=== PATIENT | male | born 1935 | race Caucasian/White ===

== ENCOUNTER 2017-06-16 07:24 | Emergency (ER) | payer OTHER ==
[~2017-06-16] VITALS: Ht 172.7 cm; Wt 74.8 kg
[~2017-06-16 07:24] MED LIST: ACET325 PO; ALBU3IS INH; ALBU90OI INH; ALBUIS INH; AMLO5 PO; BREO ELLIPTA 11 EACH IH; BUDE.5; BUDE6HFA INH; CODGUAEL PO; CYCL10 PO; Cipro500 MG PO; HYDACE5 PO; IBUP800 PO; LEVO750 PO; OMEP20ER PO; PRED10 PO; PRED20 PO; PRED5 PO; Prednisone20 MG PO; ROFL500T; RXHYDACE PO; TAMS.4ER; Ventolin Soln3 ML INH
[2017-06-16 08:14] LABS: BASOPHILS ABSOLUTE AUTO 0.02 K/mm3 (0.00-0.23); BASOPHILS PERCENT AUTO 0 % (0-2); EOSINOPHILS ABSOLUTE AUTO 0.67 K/mm3 (0.00-0.68); EOSINOPHILS PERCENT AUTO 7 % (0-6); Hematocrit 43.8 % (37.0-53.0); Hemoglobin 14.9 g/dL (13.5-17.5); IMMATURE GRAN ABSOLUTE AUTO 0.03 K/mm3 (0.00-0.10); IMMATURE GRAN PERCENT AUTO 0 % (0-1); LYMPHOCYTES ABSOLUTE AUTO 1.41 K/mm3 (0.84-5.20); LYMPHOCYTES PERCENT AUTO 16 % (21-46); MONOCYTES ABSOLUTE AUTO 0.54 K/mm3 (0.16-1.47); MONOCYTES PERCENT AUTO 6 % (4-13); Mean Corpuscular HGB 32.1 pg (26.0-34.0); Mean Corpuscular Volume 94 fL (80-100); Mean Platelet Volume 9.3 fL (9.1-12.4); NEUTROPHILS ABSOLUTE AUTO 6.33 K/mm3 (1.96-9.15); NEUTROPHILS PERCENT AUTO 70 % (41-73); Platelet Count 193 K/mm3 (150-400); RDW Coefficient Variation 13.8 % (11.7-14.2); RDW Standard Deviation 47.3 fL (35.1-46.3); Red Blood Cell Count 4.64 M/mm3 (4.30-5.90)
[2017-06-16 08:35] LABS: Alanine Aminotransfer (ALT/SGP 25 U/L (12-78); Albumin, Blood 3.8 g/dL (3.4-5.0); Albumin/Globulin Ratio 1.2 (0.8-1.8); Alk Phos 161 U/L (50-136); Anion Gap 5 mmol/L (6-16); Aspartate Aminotrans (AST/SGOT 20 U/L (12-37); Bilirubin, Total 0.6 mg/dL (0.1-1.0); Blood Urea Nitrogen 18 mg/dL (8-24); CO2, Blood 31 mmol/L (21-32); Calcium, Blood 8.5 mg/dL (8.5-10.1); Chloride, Blood 106 mmol/L (98-108); Creatinine, Blood 0.82 mg/dL (0.60-1.20); Globulin, Blood 3.1 g/dL (2.2-4.0); Glomerular Filtration Rate >60 (60-); Glucose, Blood 115 mg/dL (70-99); Potassium, Blood 3.5 mmol/L (3.5-5.5); Sodium, Blood 142 mmol/L (136-145); Total Protein, Blood 6.9 g/dL (6.4-8.2); Troponin I <0.015 ng/mL (0.000-0.040)
[2017-06-16] MEDS ORDERED: Prednisone20 MG PO (09:49)
[2017-06-16] MEDS ORDERED: Zithromax250 MG PO (09:49)
== END 2017-06-16 10:34 | disposition home or self-care (01) ==
LOC: ER 07:24
PROVIDERS: Emergency Medicine
DX: J44.1 Chronic obstructive pulmonary disease with (acute) exacerbation (principal); Z87.891 Personal history of nicotine dependence
CPT/HCPCS: 36415; 71046; 80053; 84484; 85025; 93005; 93010; 94640; 94644; 99284

== ENCOUNTER 2017-09-02 14:04 | Inpatient (IN) | payer OTHER ==
[~2017-09-02] VITALS: Ht 175.3 cm; Wt 70.4 kg
[~2017-09-02 14:04] MED LIST changes: +Zithromax250 MG PO
[2017-09-02 14:44] LABS: BASOPHILS ABSOLUTE AUTO 0.03 K/mm3 (0.00-0.23); BASOPHILS PERCENT AUTO 0 % (0-2); EOSINOPHILS ABSOLUTE AUTO 0.68 K/mm3 (0.00-0.68); EOSINOPHILS PERCENT AUTO 7 % (0-6); Hematocrit 43.7 % (37.0-53.0); Hemoglobin 14.6 g/dL (13.5-17.5); IMMATURE GRAN ABSOLUTE AUTO 0.03 K/mm3 (0.00-0.10); IMMATURE GRAN PERCENT AUTO 0 % (0-1); LYMPHOCYTES PERCENT AUTO 16 % (21-46); MONOCYTES ABSOLUTE AUTO 0.59 K/mm3 (0.16-1.47); MONOCYTES PERCENT AUTO 6 % (4-13); Mean Corpuscular HGB 32.1 pg (26.0-34.0); Mean Corpuscular HGB Conc 33.4 g/dL (31.5-36.5); Mean Corpuscular Volume 96 fL (80-100); NEUTROPHILS ABSOLUTE AUTO 6.77 K/mm3 (1.96-9.15); NEUTROPHILS PERCENT AUTO 71 % (41-73); Platelet Count 208 K/mm3 (150-400); RDW Coefficient Variation 14.1 % (11.7-14.2); RDW Standard Deviation 50.1 fL (35.1-46.3); Red Blood Cell Count 4.55 M/mm3 (4.30-5.90)
[2017-09-02 16:20] LABS: Alanine Aminotransfer (ALT/SGP 31 U/L (12-78); Albumin, Blood 3.8 g/dL (3.4-5.0); Albumin/Globulin Ratio 1.1 (0.8-1.8); Alk Phos 134 U/L (50-136); Anion Gap 8 mmol/L (6-16); Aspartate Aminotrans (AST/SGOT 26 U/L (12-37); Bilirubin, Total 0.6 mg/dL (0.1-1.0); Blood Urea Nitrogen 14 mg/dL (8-24); Bun/Creatinine Ratio 15.9 (12.0-20.0); CO2, Blood 28 mmol/L (21-32); Calcium, Blood 8.5 mg/dL (8.5-10.1); Chloride, Blood 105 mmol/L (98-108); Creatinine, Blood 0.88 mg/dL (0.60-1.20); Globulin, Blood 3.4 g/dL (2.2-4.0); Glomerular Filtration Rate >60 (60-); Glucose, Blood 91 mg/dL (70-99); Potassium, Blood 3.7 mmol/L (3.5-5.5); Sodium, Blood 141 mmol/L (136-145); Total Protein, Blood 7.2 g/dL (6.4-8.2); Troponin I 0.052 ng/mL (0.000-0.040)
[2017-09-06] MEDS ORDERED: AZIT250 PO (11:55)
[2017-09-06] MEDS ORDERED: ALBU2.5V5 NEB (11:57)
[2017-09-06] MEDS ORDERED: DOCU100 PO (11:58)
[2017-09-06] MEDS ORDERED: DULERA 100 MCG/13 GM INH (11:59)
[2017-09-06] MEDS ORDERED: OMEPRAZOLE MAGN20 MG PO (12:00)
[2017-09-06] MEDS ORDERED: PRED10 PO (12:03)
== END 2017-09-07 11:48 | disposition home or self-care (01) | DRG 189 ==
LOC: DELPENDDIS → ER 14:04 → MEDS 16:51 → ENPENDDIS 09-06 10:00 → MEDS 09-07 11:48
PROVIDERS: Emergency Medicine
DX: J96.01 Acute respiratory failure with hypoxia (principal); I24.8 Other forms of acute ischemic heart disease; J44.1 Chronic obstructive pulmonary disease with (acute) exacerbation; N40.0 Benign prostatic hyperplasia without lower urinary tract symptoms; J40 Bronchitis, not specified as acute or chronic; K21.9 Gastro-esophageal reflux disease without esophagitis; Z87.891 Personal history of nicotine dependence; Z88.2 Allergy status to sulfonamides
CPT/HCPCS: 36415; 71046; 74018; 80053; 84484; 85025; 93005; 93010; 94640; 94644; 94760; 94761; 96365; 96375; 99285; J0696; J2405; J2920; J2930; J7030; Q0163

== ENCOUNTER 2017-09-28 06:45 | Emergency (ER) | payer OTHER ==
[~2017-09-28] VITALS: Ht 175.3 cm; Wt 72.6 kg
[~2017-09-28 06:45] MED LIST changes: +ALBU2.5V5 NEB; +AZIT250 PO; +DOCU100 PO; +DULERA 100 MCG/13 GM INH; +OMEPRAZOLE MAGN20 MG PO
[2017-09-28 09:09] LABS: BASOPHILS ABSOLUTE AUTO 0.04 K/mm3 (0.00-0.23); BASOPHILS PERCENT AUTO 0 % (0-2); EOSINOPHILS ABSOLUTE AUTO 0.56 K/mm3 (0.00-0.68); EOSINOPHILS PERCENT AUTO 5 % (0-6); Hemoglobin 14.5 g/dL (13.5-17.5); IMMATURE GRAN ABSOLUTE AUTO 0.15 K/mm3 (0.00-0.10); IMMATURE GRAN PERCENT AUTO 1 % (0-1); LYMPHOCYTES ABSOLUTE AUTO 0.98 K/mm3 (0.84-5.20); LYMPHOCYTES PERCENT AUTO 8 % (21-46); MONOCYTES ABSOLUTE AUTO 0.41 K/mm3 (0.16-1.47); MONOCYTES PERCENT AUTO 4 % (4-13); Mean Corpuscular HGB 32.7 pg (26.0-34.0); Mean Corpuscular HGB Conc 33.7 g/dL (31.5-36.5); Mean Corpuscular Volume 97 fL (80-100); Mean Platelet Volume 9.3 fL (9.1-12.4); NEUTROPHILS ABSOLUTE AUTO 9.68 K/mm3 (1.96-9.15); NEUTROPHILS PERCENT AUTO 82 % (41-73); Platelet Count 181 K/mm3 (150-400); RDW Coefficient Variation 13.1 % (11.7-14.2); RDW Standard Deviation 46.8 fL (35.1-46.3); Red Blood Cell Count 4.43 M/mm3 (4.30-5.90); White Blood Cell Count 11.82 K/mm3 (4.00-11.30)
[2017-09-28 09:36] LABS: Alanine Aminotransfer (ALT/SGP 40 U/L (12-78); Albumin, Blood 3.5 g/dL (3.4-5.0); Alk Phos 136 U/L (50-136); Anion Gap 7 mmol/L (6-16); Aspartate Aminotrans (AST/SGOT 25 U/L (12-37); Bilirubin, Total 0.4 mg/dL (0.1-1.0); Blood Urea Nitrogen 9 mg/dL (8-24); Bun/Creatinine Ratio 13.9 (12.0-20.0); CO2, Blood 29 mmol/L (21-32); Calcium, Blood 8.4 mg/dL (8.5-10.1); Chloride, Blood 106 mmol/L (98-108); Creatinine, Blood 0.65 mg/dL (0.60-1.20); Globulin, Blood 3.6 g/dL (2.2-4.0); Glomerular Filtration Rate >60 (60-); Glucose, Blood 132 mg/dL (70-99); Potassium, Blood 3.9 mmol/L (3.5-5.5); Sodium, Blood 142 mmol/L (136-145); Total Protein, Blood 7.1 g/dL (6.4-8.2)
[2017-09-28 09:37] LABS: Troponin I 0.015 ng/mL (0.000-0.040)
[2017-09-28 09:50] LABS: PCO2 Arterial 43.8 mmHg (35-45); PO2 Arterial 97.5 mmHg (80-100)
[2017-09-28] MEDS ORDERED: Prednisone20 MG PO (11:03)
== END 2017-09-28 11:25 | disposition home or self-care (01) ==
LOC: ER 06:45
PROVIDERS: Emergency Medicine
DX: J44.9 Chronic obstructive pulmonary disease, unspecified (principal); R09.02 Hypoxemia; Z91.011 Allergy to milk products; Z88.2 Allergy status to sulfonamides; Z79.899 Other long term (current) drug therapy; Z87.891 Personal history of nicotine dependence
CPT/HCPCS: 36415; 36600; 71046; 80053; 82803; 83880; 84484; 85025; 93005; 93010; 94640; 96361; 96374; 99284; J2930; J7030

== ENCOUNTER 2017-11-12 20:09 | Inpatient (IN) | payer OTHER ==
[~2017-11-12] VITALS: Ht 175.3 cm; Wt 81.0 kg
[2017-11-12 20:42] LABS: BASOPHILS ABSOLUTE AUTO 0.05 K/mm3 (0.00-0.23); BASOPHILS PERCENT AUTO 1 % (0-2); EOSINOPHILS ABSOLUTE AUTO 0.09 K/mm3 (0.00-0.68); EOSINOPHILS PERCENT AUTO 1 % (0-6); Hematocrit 39.8 % (37.0-53.0); Hemoglobin 13.8 g/dL (13.5-17.5); IMMATURE GRAN ABSOLUTE AUTO 0.33 K/mm3 (0.00-0.10); IMMATURE GRAN PERCENT AUTO 4 % (0-1); LYMPHOCYTES PERCENT AUTO 20 % (21-46); MONOCYTES ABSOLUTE AUTO 0.67 K/mm3 (0.16-1.47); MONOCYTES PERCENT AUTO 7 % (4-13); Mean Corpuscular HGB 32.9 pg (26.0-34.0); Mean Corpuscular HGB Conc 34.7 g/dL (31.5-36.5); Mean Corpuscular Volume 95 fL (80-100); Mean Platelet Volume 8.9 fL (9.1-12.4); NEUTROPHILS ABSOLUTE AUTO 6.49 K/mm3 (1.96-9.15); NEUTROPHILS PERCENT AUTO 68 % (41-73); NRBC ABSOLUTE 0.02 K/mm3 (0.00-0.02); NRBC Auto 0.2 /100 WBC (0.0-0.2); Platelet Count 201 K/mm3 (150-400); RDW Coefficient Variation 13.9 % (11.7-14.2); RDW Standard Deviation 47.4 fL (35.1-46.3); White Blood Cell Count 9.53 K/mm3 (4.00-11.30)
[2017-11-12 21:00] LABS: Alanine Aminotransfer (ALT/SGP 37 U/L (12-78); Albumin, Blood 3.7 g/dL (3.4-5.0); Albumin/Globulin Ratio 1.2 (0.8-1.8); Alk Phos 105 U/L (50-136); Anion Gap 9 mmol/L (6-16); Aspartate Aminotrans (AST/SGOT 22 U/L (12-37); Bilirubin, Total 0.5 mg/dL (0.1-1.0); Blood Urea Nitrogen 13 mg/dL (8-24); Bun/Creatinine Ratio 17.3 (12.0-20.0); CO2, Blood 24 mmol/L (21-32); Calcium, Blood 8.9 mg/dL (8.5-10.1); Chloride, Blood 108 mmol/L (98-108); Creatinine, Blood 0.75 mg/dL (0.60-1.20); Glomerular Filtration Rate >60 (60-); Glucose, Blood 95 mg/dL (70-99); Potassium, Blood 4.1 mmol/L (3.5-5.5); Sodium, Blood 141 mmol/L (136-145); Total Protein, Blood 6.7 g/dL (6.4-8.2)
[2017-11-12 23:45] LABS: CHOL/HDL RATIO 3.5; Cholesterol 233 mg/dL (50-200); HDL Cholesterol 66 mg/dL (>39); LDL/HDL RATIO 1.9; Low Density Lipoprotein Chol 128 mg/dL (0-110); Triglycerides 193 mg/dL (30-160); Very Low Density Lipoprot Chol 38 mg/dL (6-32)
[2017-11-13] MEDS ORDERED: STIOLTO RESPIMAT4 GM IH (00:45)
[2017-11-14] MEDS ORDERED: PRED5 PO (14:54)
[2017-11-14] MEDS ORDERED: AMLO5 PO (14:55)
[2017-11-14] MEDS ORDERED: ASPI81CH PO (14:56)
[2017-11-14] MEDS ORDERED: ATOR40TA PO (14:57)
== END 2017-11-14 15:56 | disposition home or self-care (01) | DRG 66 ==
LOC: ER 20:09 → SURS 20:10 → MEDS 20:10 → SURS 20:10 → MEDS 11-13 00:04 → ENPENDDIS 11-14 13:47 → MEDS 11-14 15:56
PROVIDERS: Emergency Medicine
DX: I63.9 Cerebral infarction, unspecified (principal); Z66 Do not resuscitate; J44.9 Chronic obstructive pulmonary disease, unspecified; N40.0 Benign prostatic hyperplasia without lower urinary tract symptoms; I10 Essential (primary) hypertension; Z90.79 Acquired absence of other genital organ(s); Z85.820 Personal history of malignant melanoma of skin; Z87.891 Personal history of nicotine dependence; I16.0 Hypertensive urgency; Z79.01 Long term (current) use of anticoagulants; F41.9 Anxiety disorder, unspecified; G83.11 Monoplegia of lower limb affecting right dominant side; E87.5 Hyperkalemia; G47.33 Obstructive sleep apnea (adult) (pediatric); K46.9 Unspecified abdominal hernia without obstruction or gangrene; Z98.49 Cataract extraction status, unspecified eye
CPT/HCPCS: 36415; 70450; 70551; 72100; 80053; 80061; 82947; 85025; 93005; 93010; 93306; 93880; 94640; 94760; 97162; 97166; 97530; 99285; G0378; G8978; G8979; G8980; G8987; G8988; G8989; J1650

== ENCOUNTER 2020-02-08 19:04 | Emergency (ER) | payer OTHER ==
[~2020-02-08] VITALS: Ht 172.7 cm; Wt 72.1 kg
[~2020-02-08 19:04] MED LIST changes: +ASPI81CH PO; +ATOR40TA PO; +CHOL10002; +Guaifenesin-Co118 ML PO; +STIOLTO RESPIMAT4 GM IH
[2020-02-08] MEDS ORDERED: Colace100 MG PO (22:32)
[2020-02-08] MEDS ORDERED: Magnesium Citr296 ML PO (22:32)
== END 2020-02-08 22:52 | disposition home or self-care (01) ==
LOC: ER 19:04
DX: K59.00 Constipation, unspecified (principal); Z91.011 Allergy to milk products; Z88.2 Allergy status to sulfonamides; Z79.899 Other long term (current) drug therapy; J44.9 Chronic obstructive pulmonary disease, unspecified; Z87.891 Personal history of nicotine dependence
CPT/HCPCS: 74018; 99283-25

== ENCOUNTER 2020-04-18 18:37 | Inpatient (IN) | payer OTHER ==
[~2020-04-18] VITALS: Ht 175.3 cm; Wt 73.2 kg
[~2020-04-18 18:37] MED LIST changes: +Colace100 MG PO; +Magnesium Citr296 ML PO
[2020-04-18] MEDS ORDERED: ALBU3IS INH (18:59)
[2020-04-18] MEDS ORDERED: AZIT250 PO (18:59)
[2020-04-18] MEDS ORDERED: ATOR20 PO (19:00)
[2020-04-18] MEDS ORDERED: MOME220I INH (19:00)
[2020-04-18] MEDS ORDERED: STIOLTO RESPIMAT4 G1 INH (19:00)
[2020-04-18] MEDS ORDERED: Aspir 8181 MG PO (19:00)
[2020-04-18] MEDS ORDERED: N-ACETYL-L-CYS600 MG PO (19:01)
[2020-04-18] MEDS ORDERED: PRED5 (19:01)
[2020-04-18 19:11] LABS: BASOPHILS ABSOLUTE AUTO 0.01 K/mm3 (0.00-0.23); BASOPHILS PERCENT AUTO 0 % (0-2); EOSINOPHILS ABSOLUTE AUTO 0.01 K/mm3 (0.00-0.68); EOSINOPHILS PERCENT AUTO 0 % (0-6); Hematocrit 38.5 % (37.0-53.0); Hemoglobin 12.1 g/dL (13.5-17.5); IMMATURE GRAN ABSOLUTE AUTO 0.02 K/mm3 (0.00-0.10); IMMATURE GRAN PERCENT AUTO 0 % (0-1); LYMPHOCYTES ABSOLUTE AUTO 0.93 K/mm3 (0.84-5.20); LYMPHOCYTES PERCENT AUTO 11 % (21-46); MONOCYTES ABSOLUTE AUTO 0.39 K/mm3 (0.16-1.47); MONOCYTES PERCENT AUTO 5 % (4-13); Mean Corpuscular HGB 27.9 pg (26.0-34.0); Mean Corpuscular HGB Conc 31.4 g/dL (31.5-36.5); Mean Corpuscular Volume 89 fL (80-100); Mean Platelet Volume 9.6 fL (9.1-12.4); NEUTROPHILS ABSOLUTE AUTO 6.99 K/mm3 (1.96-9.15); NEUTROPHILS PERCENT AUTO 84 % (41-73); Platelet Count 195 K/mm3 (150-400); RDW Coefficient Variation 13.3 % (11.7-14.2); RDW Standard Deviation 43.2 fL (35.1-46.3); Red Blood Cell Count 4.33 M/mm3 (4.30-5.90); White Blood Cell Count 8.35 K/mm3 (4.00-11.30)
[2020-04-18 19:31] LABS: Alanine Aminotransfer (ALT/SGP 22 U/L (12-78); Albumin, Blood 3.6 g/dL (3.4-5.0); Albumin/Globulin Ratio 1.1 (0.8-1.8); Alk Phos 197 U/L (50-136); Anion Gap 6 mmol/L (6-16); Aspartate Aminotrans (AST/SGOT 19 U/L (12-37); Bilirubin, Total 0.5 mg/dL (0.1-1.0); Blood Urea Nitrogen 21 mg/dL (8-24); Bun/Creatinine Ratio 22.8 (12.0-20.0); CO2, Blood 28 mmol/L (21-32); Calcium, Blood 8.6 mg/dL (8.5-10.1); Chloride, Blood 111 mmol/L (98-108); Creatinine, Blood 0.92 mg/dL (0.60-1.20); Globulin, Blood 3.3 g/dL (2.2-4.0); Glomerular Filtration Rate >60 (60-); Glucose, Blood 170 mg/dL (70-99); Potassium, Blood 4.2 mmol/L (3.5-5.5); Sodium, Blood 145 mmol/L (136-145); Total Protein, Blood 6.9 g/dL (6.4-8.2); Troponin I <0.015 ng/mL (0.000-0.040)
[2020-04-18 19:40] LABS: International Normalized Ratio 1.03
[2020-04-20 06:38] LABS: Anion Gap 6 mmol/L (6-16); Blood Urea Nitrogen 18 mg/dL (8-24); Bun/Creatinine Ratio 23.9 (12.0-20.0); CO2, Blood 26 mmol/L (21-32); Calcium, Blood 8.8 mg/dL (8.5-10.1); Chloride, Blood 112 mmol/L (98-108); Creatinine, Blood 0.75 mg/dL (0.60-1.20); Glomerular Filtration Rate >60 (60-); Glucose, Blood 107 mg/dL (70-99); Potassium, Blood 3.9 mmol/L (3.5-5.5); Sodium, Blood 144 mmol/L (136-145)
[2020-04-21] MEDS ORDERED: MIRALAX17 GM PO (10:42)
[2020-04-21] MEDS ORDERED: FURO20 PO (10:43)
[2020-04-21] MEDS ORDERED: Klor-Con 1010 MEQ PO (10:45)
[2020-04-22 16:42] LABS: Source, Urine Catheter
[2020-04-22 16:47] LABS: Bilirubin, Urine Neg (Neg); Blood, Urine 2+ (Neg); Glucose Qualitative, Urine Neg (Neg); Ketones, Urine Neg (Neg); Leukocyte Esterase, Urine 1+ (Neg); Nitrite, Urine Neg (Neg); Protein, Urine 1+ (Neg); Urobilinogen, Urine NORM (Normal)
[2020-04-22 17:15] LABS: Appearance, Urine Hazy (Clear); Color, Urine Yellow (P-Yellow)
[2020-04-22 17:17] LABS: Bacteria Few /hpf; Squamous Epithelial Cells Rare /hpf (Few); Yeast/Fungi Urine Mod /hpf
[2020-04-23] MEDS ORDERED: TAMS.4ER PO (11:14)
[2020-04-23] MEDS ORDERED: Prinivil10 MG PO (11:14)
[2020-04-23] MEDS ORDERED: ASPI81CH PO (11:14)
[2020-04-23] MEDS ORDERED: AMLO5 PO (11:14)
== END 2020-04-23 15:00 | DRG 66 ==
LOC: ER 18:37 → MEDS 18:38
PROVIDERS: Emergency Medicine; Internal Medicine; ADMIT Hospitalist
DX: I63.81 Other cerebral infarction due to occlusion or stenosis of small artery (principal); R29.810 Facial weakness; Z87.891 Personal history of nicotine dependence; R47.1 Dysarthria and anarthria; E78.5 Hyperlipidemia, unspecified; Z90.79 Acquired absence of other genital organ(s); I10 Essential (primary) hypertension; W18.30XA Fall on same level, unspecified, initial encounter; Y92.231 Patient bathroom in hospital as the place of occurrence of the external cause; S01.01XA Laceration without foreign body of scalp, initial encounter; R33.9 Retention of urine, unspecified
CPT/HCPCS: 36415; 70450; 70496; 70498; 70551; 80048; 80053; 81001; 84484; 85025; 85610; 85730; 87086; 92526; 92610; 93005; 93010; 94640; 94667; 94668; 94760; 97110; 97116; 97129; 97162; 97166; 97530; 97535; 99285-25; A9270-GY; G0378; J7030; Q9967; U0004

== ENCOUNTER 2020-06-27 14:34 | Emergency (ER) | payer OTHER ==
[~2020-06-27] VITALS: Ht 175.3 cm; Wt 77.1 kg
[~2020-06-27 14:34] MED LIST changes: +ATOR20 PO; +Aspir 8181 MG PO; +FURO20 PO; +Klor-Con 1010 MEQ PO; +MIRALAX17 GM PO; +MOME220I INH; +N-ACETYL-L-CYS600 MG PO; +PRED5; +Prinivil10 MG PO; +STIOLTO RESPIMAT4 G1 INH; +TAMS.4ER PO
[2020-06-27 15:44] LABS: BASOPHILS ABSOLUTE AUTO 0.04 K/mm3 (0.00-0.23); BASOPHILS PERCENT AUTO 0 % (0-2); EOSINOPHILS ABSOLUTE AUTO 0.64 K/mm3 (0.00-0.68); EOSINOPHILS PERCENT AUTO 6 % (0-6); Hematocrit 42.6 % (37.0-53.0); Hemoglobin 13.6 g/dL (13.5-17.5); IMMATURE GRAN ABSOLUTE AUTO 0.04 K/mm3 (0.00-0.10); IMMATURE GRAN PERCENT AUTO 0 % (0-1); LYMPHOCYTES ABSOLUTE AUTO 1.43 K/mm3 (0.84-5.20); LYMPHOCYTES PERCENT AUTO 13 % (21-46); MONOCYTES PERCENT AUTO 4 % (4-13); Mean Corpuscular HGB 29.4 pg (26.0-34.0); Mean Corpuscular HGB Conc 31.9 g/dL (31.5-36.5); Mean Corpuscular Volume 92 fL (80-100); Mean Platelet Volume 9.4 fL (9.1-12.4); NEUTROPHILS ABSOLUTE AUTO 8.49 K/mm3 (1.96-9.15); NEUTROPHILS PERCENT AUTO 77 % (41-73); Platelet Count 200 K/mm3 (150-400); Red Blood Cell Count 4.62 M/mm3 (4.30-5.90); White Blood Cell Count 11.04 K/mm3 (4.00-11.30)
[2020-06-27 16:01] LABS: Alanine Aminotransfer (ALT/SGP 24 U/L (12-78); Albumin, Blood 3.7 g/dL (3.4-5.0); Albumin/Globulin Ratio 1.1 (0.8-1.8); Alk Phos 234 U/L (50-136); Anion Gap 4 mmol/L (6-16); Aspartate Aminotrans (AST/SGOT 19 U/L (12-37); Bilirubin, Total 0.6 mg/dL (0.1-1.0); Blood Urea Nitrogen 13 mg/dL (8-24); Bun/Creatinine Ratio 16.3 (12.0-20.0); CO2, Blood 29 mmol/L (21-32); Calcium, Blood 8.9 mg/dL (8.5-10.1); Chloride, Blood 108 mmol/L (98-108); Globulin, Blood 3.5 g/dL (2.2-4.0); Glomerular Filtration Rate >60 (60-); Glucose, Blood 115 mg/dL (70-99); Potassium, Blood 3.9 mmol/L (3.5-5.5); Sodium, Blood 141 mmol/L (136-145); Total Protein, Blood 7.2 g/dL (6.4-8.2); Troponin I <0.015 ng/mL (0.000-0.040)
== END 2020-06-27 19:48 | disposition home or self-care (01) ==
LOC: ER 14:34
PROVIDERS: Physician Assistant
DX: J44.1 Chronic obstructive pulmonary disease with (acute) exacerbation (principal); Z79.52 Long term (current) use of systemic steroids; Z79.899 Other long term (current) drug therapy; Z79.82 Long term (current) use of aspirin; Z91.011 Allergy to milk products; Z88.2 Allergy status to sulfonamides; Z87.891 Personal history of nicotine dependence
CPT/HCPCS: 36415; 71046; 80053; 84484; 85025; 93005; 93010; 94640; 99285-25

== ENCOUNTER 2020-11-14 02:26 | Emergency (ER) | payer OTHER ==
[~2020-11-14] VITALS: Ht 175.3 cm; Wt 68.0 kg
[2020-11-14 03:00] LABS: BASOPHILS ABSOLUTE AUTO 0.03 K/mm3 (0.00-0.23); BASOPHILS PERCENT AUTO 0 % (0-2); EOSINOPHILS ABSOLUTE AUTO 0.65 K/mm3 (0.00-0.68); EOSINOPHILS PERCENT AUTO 7 % (0-6); Hematocrit 39.9 % (37.0-53.0); Hemoglobin 12.7 g/dL (13.5-17.5); IMMATURE GRAN ABSOLUTE AUTO 0.04 K/mm3 (0.00-0.10); IMMATURE GRAN PERCENT AUTO 0 % (0-1); LYMPHOCYTES ABSOLUTE AUTO 1.79 K/mm3 (0.84-5.20); LYMPHOCYTES PERCENT AUTO 19 % (21-46); MONOCYTES ABSOLUTE AUTO 0.57 K/mm3 (0.16-1.47); MONOCYTES PERCENT AUTO 6 % (4-13); Mean Corpuscular HGB 28.6 pg (26.0-34.0); Mean Corpuscular HGB Conc 31.8 g/dL (31.5-36.5); Mean Corpuscular Volume 90 fL (80-100); Mean Platelet Volume 9.4 fL (9.1-12.4); NEUTROPHILS ABSOLUTE AUTO 6.13 K/mm3 (1.96-9.15); NEUTROPHILS PERCENT AUTO 67 % (41-73); Platelet Count 201 K/mm3 (150-400); RDW Coefficient Variation 13.5 % (11.7-14.2); RDW Standard Deviation 44.1 fL (35.1-46.3); Red Blood Cell Count 4.44 M/mm3 (4.30-5.90); White Blood Cell Count 9.21 K/mm3 (4.00-11.30)
[2020-11-14 03:20] LABS: Alanine Aminotransfer (ALT/SGP 23 U/L (12-78); Albumin, Blood 3.6 g/dL (3.4-5.0); Albumin/Globulin Ratio 1.1 (0.8-1.8); Alk Phos 215 U/L (50-136); Anion Gap 5 mmol/L (6-16); Aspartate Aminotrans (AST/SGOT 13 U/L (12-37); Bilirubin, Total 0.4 mg/dL (0.1-1.0); Blood Urea Nitrogen 15 mg/dL (8-24); Bun/Creatinine Ratio 16.4 (12.0-20.0); CO2, Blood 27 mmol/L (21-32); Calcium, Blood 8.7 mg/dL (8.5-10.1); Chloride, Blood 108 mmol/L (98-108); Creatinine, Blood 0.91 mg/dL (0.60-1.20); Globulin, Blood 3.4 g/dL (2.2-4.0); Glomerular Filtration Rate >60 (60-); Glucose, Blood 124 mg/dL (70-99); Potassium, Blood 3.9 mmol/L (3.5-5.5); Sodium, Blood 140 mmol/L (136-145); Troponin I <0.015 ng/mL (0.000-0.040)
[2020-11-14] MEDS ORDERED: Prednisone20 MG PO (03:33)
[2020-11-14] MEDS ORDERED: ALBU90OI INH (03:33)
== END 2020-11-14 04:32 | disposition home or self-care (01) ==
LOC: ER 02:26
PROVIDERS: Emergency Medicine
DX: J44.1 Chronic obstructive pulmonary disease with (acute) exacerbation (principal); Z91.011 Allergy to milk products; Z88.2 Allergy status to sulfonamides; Z79.82 Long term (current) use of aspirin; Z79.899 Other long term (current) drug therapy; Z87.891 Personal history of nicotine dependence
CPT/HCPCS: 36415; 71045; 80053; 83605; 83880; 84484; 85025; 93005; 93010; 94644; 96365; 96375; 99285-25; J2930; J3475

== ENCOUNTER 2020-12-09 06:18 | Inpatient (IN) | payer OTHER ==
[~2020-12-09] VITALS: Ht 175.3 cm; Wt 72.7 kg
[2020-12-09 07:17] LABS: BASOPHILS ABSOLUTE AUTO 0.02 K/mm3 (0.00-0.23); BASOPHILS PERCENT AUTO 0 % (0-2); EOSINOPHILS ABSOLUTE AUTO 0.01 K/mm3 (0.00-0.68); EOSINOPHILS PERCENT AUTO 0 % (0-6); Hemoglobin 13.1 g/dL (13.5-17.5); IMMATURE GRAN ABSOLUTE AUTO 0.11 K/mm3 (0.00-0.10); IMMATURE GRAN PERCENT AUTO 1 % (0-1); LYMPHOCYTES ABSOLUTE AUTO 1.31 K/mm3 (0.84-5.20); LYMPHOCYTES PERCENT AUTO 11 % (21-46); MONOCYTES ABSOLUTE AUTO 0.33 K/mm3 (0.16-1.47); MONOCYTES PERCENT AUTO 3 % (4-13); Mean Corpuscular HGB 28.5 pg (26.0-34.0); Mean Corpuscular Volume 89 fL (80-100); NEUTROPHILS ABSOLUTE AUTO 10.14 K/mm3 (1.96-9.15); NEUTROPHILS PERCENT AUTO 85 % (41-73); NRBC ABSOLUTE 0.02 K/mm3 (0.00-0.02); NRBC Auto 0.2 /100 WBC (0.0-0.2); RDW Coefficient Variation 13.5 % (11.7-14.2); RDW Standard Deviation 43.8 fL (35.1-46.3); White Blood Cell Count 11.92 K/mm3 (4.00-11.30)
[2020-12-09 07:19] LABS: Alanine Aminotransfer (ALT/SGP 23 U/L (12-78); Albumin, Blood 3.2 g/dL (3.4-5.0); Alk Phos 142 U/L (50-136); Anion Gap 8 mmol/L (6-16); Aspartate Aminotrans (AST/SGOT 13 U/L (12-37); Bilirubin, Total 0.4 mg/dL (0.1-1.0); Blood Urea Nitrogen 21 mg/dL (8-24); CO2, Blood 27 mmol/L (21-32); Calcium, Blood 8.7 mg/dL (8.5-10.1); Chloride, Blood 110 mmol/L (98-108); Creatinine, Blood 0.78 mg/dL (0.60-1.20); Globulin, Blood 3.1 g/dL (2.2-4.0); Glomerular Filtration Rate >60 (60-); Glucose, Blood 103 mg/dL (70-99); Potassium, Blood 3.7 mmol/L (3.5-5.5); Sodium, Blood 145 mmol/L (136-145); Total Protein, Blood 6.3 g/dL (6.4-8.2)
[2020-12-09 07:23] LABS: Platelet Count 165 K/mm3 (150-400)
--- NOTE | 2020-12-09 14:40 | NUR ---
Patient is resting in bed but easily awakens to the sound of his name. Patient tells me about the events that led to his hospitalization and then explains about the stroke that he had 4 mos ago. Patient talks about his caring and adopted son and how much they mean to him. He shares about his [employer] Religion sam and talks about how he has trouble reading the Bible since the stroke (as well as having difficulties, talking, eating and being mobile). I normalize patient's experience, and provide pastoral counselor at law, companionship and prayer. Patient responds well and shows signs of an elevated mood. I will continue to remain available to patient and family.
[2020-12-09 14:55] LABS: Base Excess Venous -1.9 mmol/L; Bicarbonate Venous 23.4 mmol/L (24.0-30.0); PCO2 Venous 30.9 mmHg (38-42); PO2 Venous 151 mmHg (38-42); pH Blood Venous 7.46 (7.34-7.37)
[2020-12-09] MEDS ORDERED: TAMS.4ER PO (16:19)
[2020-12-09] MEDS ORDERED: NAC600 MG PO (16:41)
--- NOTE | 2020-12-09 17:51 | NUR ---
SHIFT SUMMARY PT A&O X3, SOMETIMES HAS A HARD TIME FINDING THE RIGHT WORDS TO ANSWER QUESTIONS. HX OF RECENT STROKE. UP SBA IN ROOM. INCREASED SOB WITH ACTIVITY. 1L OXYGEN VIA NC. OOB TO CHAIR FOR MEALS WITH ASPIRATION PRECAUTIONS. PT UP TO BATHROOM THIS EVENING UNABLE TO VOID. BLADDER SCAN WITH 540 CC. PT DECLINES TO HAVE RUIZ PLACED AT THAT TIME. "I WANT TO TRY TO GO AGAIN IN AN HOUR" WILL ASSIST PT TO BATHROOM AND CHECK BLADDER SCAN AT THAT TIME. VSS. PLAN: CONTINUE ABX
--- NOTE | 2020-12-09 18:46 | NUR ---
PT UNABLE TO VOID PT UP TO BR TO VOID WITH SBA. VOIDED SCANT AMOUNT. BLADDER SCAN SHOWED 573 CC. PT WANTS TO WAIT "ANOTHER HOUR" TO ATTEMPT TO VOID PRIOR TO RUIZ CATH PLACEMENT. CALL TO DR LARRY- STATED IT WAS OK TO GIVE PT MORE TIME TO VOID. NEW ORDER RECIEVED.
--- NOTE | 2020-12-09 19:45 | NUR ---
MARILUZ ATTEMPTED TO VOID AFTER BLADDER SCAN SHOWED >650 IN THE BLADDER. HE WAS ONLY ABLE TO VOID MAYBE AN ESTIMATE OF 50CC. HE WAS NOT TO FOND OF GETTING A CATHETER BUT HE TOLERATED IT WELL. 16F RUIZ PLACED WITH NO PROBLEMS. DARK YELLOW URINE OBTAINED. ATTACHED TO STAT LOCK. WILL MONITOR T/O NIGHT.
[2020-12-10 05:21] LABS: Hematocrit 29.5 % (37.0-53.0); Hemoglobin 9.7 g/dL (13.5-17.5); Mean Corpuscular HGB Conc 32.9 g/dL (31.5-36.5); Mean Corpuscular Volume 88 fL (80-100); Mean Platelet Volume 9.8 fL (9.1-12.4); Platelet Count 177 K/mm3 (150-400); RDW Coefficient Variation 13.8 % (11.7-14.2); RDW Standard Deviation 44.5 fL (35.1-46.3); Red Blood Cell Count 3.35 M/mm3 (4.30-5.90); White Blood Cell Count 14.62 K/mm3 (4.00-11.30)
[2020-12-10 05:47] LABS: Anion Gap 7 mmol/L (6-16); Blood Urea Nitrogen 17 mg/dL (8-24); Bun/Creatinine Ratio 25.9 (12.0-20.0); CO2, Blood 24 mmol/L (21-32); Calcium, Blood 7.6 mg/dL (8.5-10.1); Chloride, Blood 111 mmol/L (98-108); Creatinine, Blood 0.66 mg/dL (0.60-1.20); Glomerular Filtration Rate >60 (60-); Glucose, Blood 148 mg/dL (70-99); Potassium, Blood 3.7 mmol/L (3.5-5.5); Sodium, Blood 142 mmol/L (136-145)
--- NOTE | 2020-12-10 06:03 | NUR ---
SHIFT SUMMARY: AOX3, SBA TO THE BATHROOM. VS WNL, AFEBRILE. NO PAIN NOTED. LUNG SOUNDS DIMINISHED, COURSE. MOIST NON-PRODUCTIVE COUGH. ON 1 LITER OF O2 SATS MAINTAINED ABOVE 90%, MAY BE ABLE TO BE TAKEN OFF OF IT TODAY. NO EDEMA NOTED. DYSPNEA ON EXERTION, RECOVERY IS QUICK. UNABLE TO VOID. BLADDER SCAN SHOWED >650. PLACED 16F RUIZ, DARK YELLOW URINE. REPORTS BREATHING TREATMENTS HELP. ON NECTER THICK FLUIDS, IS GOOD ABOUT FOLLOWING CHIN TUCK. BLOOD CULTURES POSTIVE FOR GRAM + COCCI IN CLUSTERS. ON UNASYN. LACTIC ACID REPEAT CAME BACK 4.2 LOWER THEN PREVIOUS LEVEL. WBC UP TO 14.62. CALLS APPROPRIATLY. WILL REPORT TO DAYSHIFT. CALL LIGHT IN REACH.
[2020-12-10 07:30] LABS: Source, Urine Catheter
[2020-12-10 07:34] LABS: Appearance, Urine Clear (Clear); Bilirubin, Urine Neg (Neg); Blood, Urine 2+ (Neg); Color, Urine Yellow (P-Yellow); Glucose Qualitative, Urine Neg (Neg); Ketones, Urine Neg (Neg); Leukocyte Esterase, Urine 1+ (Neg); Nitrite, Urine Neg (Neg); Protein, Urine 2+ (Neg); Urobilinogen, Urine NORM (Normal)
[2020-12-10 07:52] LABS: Squamous Epithelial Cells Rare /hpf (Few)
[2020-12-10 07:54] LABS: Bacteria Rare /hpf
--- NOTE | 2020-12-10 14:22 | NUR ---
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 He was very popular and is deeply missed. He was appreciative of visit, smiled easily and reports hope for a return to post-stroke baseline. Prayer and encouragement well received. Weapons System Instrument Mechanic services will remain available.
[2020-12-10] MEDS ORDERED: PRED5 PO (14:59)
[2020-12-10] MEDS ORDERED: FLOVENT HFA12 GM INH (15:01)
--- NOTE | 2020-12-10 17:17 | NUR ---
SHIFT SUMMARY PT AXO, PLEASANT AND COOPERATIVE WITH CARE. RUIZ AND PERIPHERAL IV'S DC'D THIS SHIFT. POWERGLIDE TO BRANDEN IN PLACE AND INFUSING VANCO AND NS PER EMAR AT THIS TIME. PT UP TO CHAIR FOR MOST OF THE DAY AND MEALS WITH SBA. SPOUSE PRESENT IN ROOM FOR PHYSICIAN VISIT, ALL QUESTIONS ANSWERED. PT 94% ON RA. DENIES PAIN, SOB AND NV. SOME NONPRODUCTIVE COUGH THIS SHIFT. BED IN LOW POSITION, CALL LIGHT WITHIN REACH. NO OTHER CHANGES THIS SHIFT.
--- NOTE | 2020-12-11 04:44 | NUR ---
DIETARY DIRECTOR SUMMARY PT AAOX4 AND PLEASANT. CONTINUES ON IV ABX. HAS URINATED 450 ML THIS SHIFT AFTER HAVING RUIZ CATH DC'D EARLIER TODAY. PT DENIES PAIN, SOB, N/V. HAS SLEPT MOST OF THE SHIFT WITH NO COMPLAINTS. VSS, WILL CONTINUE TO MONITOR.
[2020-12-11 05:49] LABS: BASOPHILS ABSOLUTE AUTO 0.02 K/mm3 (0.00-0.23); BASOPHILS PERCENT AUTO 0 % (0-2); EOSINOPHILS PERCENT AUTO 0 % (0-6); Hematocrit 29.2 % (37.0-53.0); Hemoglobin 9.5 g/dL (13.5-17.5); IMMATURE GRAN PERCENT AUTO 2 % (0-1); LYMPHOCYTES ABSOLUTE AUTO 0.81 K/mm3 (0.84-5.20); LYMPHOCYTES PERCENT AUTO 6 % (21-46); MONOCYTES ABSOLUTE AUTO 0.53 K/mm3 (0.16-1.47); MONOCYTES PERCENT AUTO 4 % (4-13); Mean Corpuscular HGB 29.1 pg (26.0-34.0); Mean Corpuscular HGB Conc 32.5 g/dL (31.5-36.5); Mean Corpuscular Volume 89 fL (80-100); Mean Platelet Volume 9.8 fL (9.1-12.4); NEUTROPHILS ABSOLUTE AUTO 11.39 K/mm3 (1.96-9.15); NEUTROPHILS PERCENT AUTO 88 % (41-73); Platelet Count 177 K/mm3 (150-400); RDW Coefficient Variation 13.8 % (11.7-14.2); RDW Standard Deviation 45.5 fL (35.1-46.3); Red Blood Cell Count 3.27 M/mm3 (4.30-5.90); White Blood Cell Count 12.95 K/mm3 (4.00-11.30)
[2020-12-11 06:17] LABS: Anion Gap 5 mmol/L (6-16); Blood Urea Nitrogen 16 mg/dL (8-24); Bun/Creatinine Ratio 23.2 (12.0-20.0); CO2, Blood 25 mmol/L (21-32); Calcium, Blood 7.8 mg/dL (8.5-10.1); Chloride, Blood 111 mmol/L (98-108); Creatinine, Blood 0.69 mg/dL (0.60-1.20); Glomerular Filtration Rate >60 (60-); Glucose, Blood 130 mg/dL (70-99); Potassium, Blood 3.8 mmol/L (3.5-5.5); Sodium, Blood 141 mmol/L (136-145)
--- NOTE | 2020-12-11 17:42 | NUR ---
SHIFT SUMMARY PT A&OX4, ABLE TO MAKE NEEDS KNOWN. PLEASANT AND COOPERATIVE TO CARE. PT INDEPENDENT IN THE ROOM, CALLS APPROPRIATELY FOR ASSISTANCE. NO C/O PAIN THIS SHIFT. DENIES CP OR N&V. PT REPORTED SOB WITH EXERTION, DRY COUGH NOTED. PT ON CONT BIOX, SATS 91-93% IN RA, AT REST. O2 SAT NOTED TO GO DOWN TO 87-88% WHEN PT IS GETTING UP FROM BED OR AFTER WALKING BACK FROM BATHROOM. NOTIFIED DR. GU. NO FURTHER ORDERS NOTED. PT CALM AND COMFORTABLE IN BED AT THIS TIME. DENIES ANY DISCOMFORT. BED AT LOWEST POSITION. CALL LIGHT WITHIN REACH.
--- NOTE | 2020-12-11 17:54 | NUR ---
SHIFT SUMMARY PT A&OX4, ABLE TO MAKE NEEDS KNOWN, PLEASANT AND COOPERATIVE TO CARE. NO C/O PAIN OR ANY DISCOMFORT THIS SHIFT. DENIES CP, SOB, OR N&V. NO ACUTE CHANGES NOTED TO PT THIS SHIFT. TOLERATED MEDICATIONS WELL WHOLE IN APPLESAUCE. PT SBA TO THE BATHROOM W/ FWW. PT ABLE TO VOID W/O ISSUES, USES URINAL, DENIES DYSURIA. BED AT LOWEST POSITION. CALL LIGHT WITHIN REACH.
--- NOTE | 2020-12-12 04:47 | NUR ---
SHIFT SUMMARY PT A/O X4; PLEASANT AND COOPERATIVE WITH CARE. NO ACUTE CHANGES THIS SHIFT. PT IS ABLE TO MAKE NEEDS KNOWN. VOIDS USING A URINAL AND SBA TO THE BA. HAS BEEN RESTING COMFORTABLY FOR THE MAJORITY OF THE SHIFT. VSS. WILL REPORT TO ONCOMING RN.
[2020-12-12 04:59] LABS: BASOPHILS ABSOLUTE AUTO 0.04 K/mm3 (0.00-0.23); BASOPHILS PERCENT AUTO 0 % (0-2); EOSINOPHILS ABSOLUTE AUTO 0.04 K/mm3 (0.00-0.68); EOSINOPHILS PERCENT AUTO 0 % (0-6); Hematocrit 33.1 % (37.0-53.0); Hemoglobin 10.7 g/dL (13.5-17.5); IMMATURE GRAN ABSOLUTE AUTO 0.37 K/mm3 (0.00-0.10); IMMATURE GRAN PERCENT AUTO 4 % (0-1); LYMPHOCYTES ABSOLUTE AUTO 1.17 K/mm3 (0.84-5.20); LYMPHOCYTES PERCENT AUTO 12 % (21-46); MONOCYTES PERCENT AUTO 5 % (4-13); Mean Corpuscular HGB 28.5 pg (26.0-34.0); Mean Corpuscular HGB Conc 32.3 g/dL (31.5-36.5); Mean Corpuscular Volume 88 fL (80-100); Mean Platelet Volume 9.4 fL (9.1-12.4); NEUTROPHILS PERCENT AUTO 79 % (41-73); Platelet Count 195 K/mm3 (150-400); RDW Coefficient Variation 13.8 % (11.7-14.2); RDW Standard Deviation 44.9 fL (35.1-46.3); Red Blood Cell Count 3.75 M/mm3 (4.30-5.90); White Blood Cell Count 9.92 K/mm3 (4.00-11.30)
[2020-12-12 05:17] LABS: Anion Gap 6 mmol/L (6-16); Blood Urea Nitrogen 15 mg/dL (8-24); Bun/Creatinine Ratio 17.8 (12.0-20.0); CO2, Blood 28 mmol/L (21-32); Calcium, Blood 8.1 mg/dL (8.5-10.1); Chloride, Blood 108 mmol/L (98-108); Creatinine, Blood 0.84 mg/dL (0.60-1.20); Glomerular Filtration Rate >60 (60-); Glucose, Blood 87 mg/dL (70-99); Potassium, Blood 3.7 mmol/L (3.5-5.5); Sodium, Blood 142 mmol/L (136-145)
[2020-12-12 14:43] LABS: Vancomycin, Trough 2.9 ug/mL (5.0-10.0)
--- NOTE | 2020-12-12 17:52 | NUR ---
PT IS RESTING IN CHAIR MAKING NO C/O PAIN OR SOB AT THIS TIME. PT REMAINS ON ROOM AIR AND IS AWAITING LABS AND XRAY TO BE COMPLETED IN THE MORNING. WAS IN TODAY TO SPEAK WITH [facility] TO PREVENT ASPIRATION. PT IS ALERT AND ORIENTED, IV SL, BED IN LOW POSITION AND CALL LIGHT WITHIN REACH. STAFF WILL CONTINUE TO MONITOR.
--- NOTE | 2020-12-12 22:27 | NUR ---
AWAKE AND UP TO THE BATHROOM A FEW TIMES. IVF INFUSING AND CONTIUES TO RECEIVE ANTIBIOTICS PER MD ORDERS - SEE MAR FOR DETAILS. CALL LIGHT IN REACH
--- NOTE | 2020-12-13 04:33 | NUR ---
MARKETING BUSINESS ANALYST SUMMARY HAS BEEN AWAKE AT INTERVALS THIS SHIFT. UP TO THE BATHROOM A FEW TIMES. OUT OF BED AND INTO THE CHAIR AT BEDSIDE AROUND 0200 AM. IVF TKO WITH ANTIBIOTICS INFUSING ABOUT EVERY 6 HRS AROUND THE CLOCK. ALTHOUGH DENIES DISTRESS AND PAIN, NOTE SOME APPARENT RESTLESSNESS AT TIMES. CALL LIGHT IN REACH. LUNG SOUNDS DIMINISHED.
[2020-12-13 04:50] LABS: BASOPHILS ABSOLUTE AUTO 0.04 K/mm3 (0.00-0.23); BASOPHILS PERCENT AUTO 0 % (0-2); EOSINOPHILS ABSOLUTE AUTO 0.17 K/mm3 (0.00-0.68); EOSINOPHILS PERCENT AUTO 2 % (0-6); Hematocrit 35.5 % (37.0-53.0); Hemoglobin 11.7 g/dL (13.5-17.5); IMMATURE GRAN ABSOLUTE AUTO 0.44 K/mm3 (0.00-0.10); IMMATURE GRAN PERCENT AUTO 5 % (0-1); LYMPHOCYTES ABSOLUTE AUTO 1.13 K/mm3 (0.84-5.20); LYMPHOCYTES PERCENT AUTO 12 % (21-46); MONOCYTES PERCENT AUTO 6 % (4-13); Mean Corpuscular Volume 88 fL (80-100); Mean Platelet Volume 9.5 fL (9.1-12.4); NEUTROPHILS ABSOLUTE AUTO 7.17 K/mm3 (1.96-9.15); NEUTROPHILS PERCENT AUTO 75 % (41-73); Platelet Count 205 K/mm3 (150-400); RDW Coefficient Variation 13.8 % (11.7-14.2); RDW Standard Deviation 44.9 fL (35.1-46.3); Red Blood Cell Count 4.03 M/mm3 (4.30-5.90); White Blood Cell Count 9.55 K/mm3 (4.00-11.30)
[2020-12-13 05:07] LABS: Anion Gap 5 mmol/L (6-16); Blood Urea Nitrogen 13 mg/dL (8-24); Bun/Creatinine Ratio 16.6 (12.0-20.0); CO2, Blood 28 mmol/L (21-32); Calcium, Blood 8.2 mg/dL (8.5-10.1); Chloride, Blood 106 mmol/L (98-108); Creatinine, Blood 0.78 mg/dL (0.60-1.20); Glomerular Filtration Rate >60 (60-); Glucose, Blood 92 mg/dL (70-99); Potassium, Blood 3.9 mmol/L (3.5-5.5); Sodium, Blood 139 mmol/L (136-145)
[2020-12-13] MEDS ORDERED: VISBIOME 112.51 EACH PO (11:42)
[2020-12-13] MEDS ORDERED: AUGMENTIN 500-1 EACH PO (11:43)
--- NOTE | 2020-12-13 12:50 | NUR ---
PT WAS DISCHARGED HOME VIA WHEELCHAIR WITH FAMILY AND BELONGINGS AT SIDE. PT WAS ALERT AND ORIENTED X4, MAKING NO C/O PAIN OR SOB. PT POWER GLIDE WAS DC'D AND WNL, MEDS FAXED TO [facility] AND PT EDUCATED ON FOLLOW UP APPOINTMENTS NEEDED WITH HIS PCP. AND PT WERE ABLE TO VERBALIZE/TEACH BACK EDUCATION.
== END 2020-12-13 12:12 | disposition home or self-care (01) | DRG 871 ==
LOC: ER 06:18 → MEDS 08:22 → ERHOLD 08:22 → MEDS 10:39
PROVIDERS: Emergency Medicine; Internal Medicine; Nurse Practitioner Acute Care; ADMIT Internal Medicine
DX: A41.9 Sepsis, unspecified organism (principal); R65.21 Severe sepsis with septic shock; J18.9 Pneumonia, unspecified organism; J69.0 Pneumonitis due to inhalation of food and vomit; J96.01 Acute respiratory failure with hypoxia; J44.0 Chronic obstructive pulmonary disease with (acute) lower respiratory infection; J44.1 Chronic obstructive pulmonary disease with (acute) exacerbation; R13.10 Dysphagia, unspecified; I10 Essential (primary) hypertension; N40.0 Benign prostatic hyperplasia without lower urinary tract symptoms; E78.5 Hyperlipidemia, unspecified; Z88.2 Allergy status to sulfonamides; Z88.8 Allergy status to other drugs, medicaments and biological substances; Z91.011 Allergy to milk products; Z98.890 Other specified postprocedural states; Z85.820 Personal history of malignant melanoma of skin; Z90.79 Acquired absence of other genital organ(s); Z98.49 Cataract extraction status, unspecified eye; Z79.52 Long term (current) use of systemic steroids; Z79.899 Other long term (current) drug therapy; Z79.82 Long term (current) use of aspirin; I69.391 Dysphagia following cerebral infarction; Z87.891 Personal history of nicotine dependence
CPT/HCPCS: 36415; 51702; 71045; 80048; 80053; 80202; 81001; 82803; 83605; 83880; 84145; 85025; 85027; 87040; 92526; 92610; 93005; 93010; 94640; 94644; 94667; 94668; 94760; 96365; 96367; 96375; 99285-25; A9270; C1751; J0295; J0456; J0696; J1650; J2920; J2930; J3370; J7030; J7050

== ENCOUNTER 2021-01-11 18:14 | Emergency (ER) | payer OTHER ==
[~2021-01-11] VITALS: Ht 175.3 cm; Wt 68.0 kg
[~2021-01-11 18:14] MED LIST changes: +AUGMENTIN 500-1 EACH PO; +FLOVENT HFA12 GM INH; +NAC600 MG PO; +VISBIOME 112.51 EACH PO
[2021-01-11 19:55] LABS: BASOPHILS ABSOLUTE AUTO 0.06 K/mm3 (0.00-0.23); BASOPHILS PERCENT AUTO 0 % (0-2); EOSINOPHILS ABSOLUTE AUTO 0.26 K/mm3 (0.00-0.68); EOSINOPHILS PERCENT AUTO 2 % (0-6); Hematocrit 38.7 % (37.0-53.0); Hemoglobin 12.5 g/dL (13.5-17.5); IMMATURE GRAN ABSOLUTE AUTO 0.65 K/mm3 (0.00-0.10); IMMATURE GRAN PERCENT AUTO 4 % (0-1); LYMPHOCYTES ABSOLUTE AUTO 2.43 K/mm3 (0.84-5.20); LYMPHOCYTES PERCENT AUTO 16 % (21-46); MONOCYTES ABSOLUTE AUTO 0.91 K/mm3 (0.16-1.47); MONOCYTES PERCENT AUTO 6 % (4-13); Mean Corpuscular HGB 29.2 pg (26.0-34.0); Mean Corpuscular HGB Conc 32.3 g/dL (31.5-36.5); Mean Corpuscular Volume 90 fL (80-100); Mean Platelet Volume 9.3 fL (9.1-12.4); NEUTROPHILS ABSOLUTE AUTO 11.18 K/mm3 (1.96-9.15); NEUTROPHILS PERCENT AUTO 72 % (41-73); Platelet Count 170 K/mm3 (150-400); RDW Coefficient Variation 15.2 % (11.7-14.2); RDW Standard Deviation 50.2 fL (35.1-46.3); Red Blood Cell Count 4.28 M/mm3 (4.30-5.90); White Blood Cell Count 15.49 K/mm3 (4.00-11.30)
[2021-01-11 20:18] LABS: Alanine Aminotransfer (ALT/SGP 44 U/L (12-78); Albumin, Blood 3.4 g/dL (3.4-5.0); Albumin/Globulin Ratio 1.1 (0.8-1.8); Alk Phos 121 U/L (50-136); Anion Gap 5 mmol/L (6-16); Aspartate Aminotrans (AST/SGOT 22 U/L (12-37); Bilirubin, Total 0.6 mg/dL (0.1-1.0); Blood Urea Nitrogen 21 mg/dL (8-24); Bun/Creatinine Ratio 27.2 (12.0-20.0); CO2, Blood 28 mmol/L (21-32); Calcium, Blood 8.7 mg/dL (8.5-10.1); Chloride, Blood 107 mmol/L (98-108); Creatinine, Blood 0.77 mg/dL (0.60-1.20); Globulin, Blood 3.2 g/dL (2.2-4.0); Glomerular Filtration Rate >60 (60-); Glucose, Blood 107 mg/dL (70-99); Potassium, Blood 4.5 mmol/L (3.5-5.5); Sodium, Blood 140 mmol/L (136-145); Total Protein, Blood 6.6 g/dL (6.4-8.2)
[2021-01-12] MEDS ORDERED: Magnesium Citr296 ML PO (00:31)
[2021-01-12] MEDS ORDERED: Magic Bullet10 MG PR (00:31)
== END 2021-01-12 01:00 | disposition home or self-care (01) ==
LOC: ER 18:14
PROVIDERS: Physician Assistant
DX: K59.00 Constipation, unspecified (principal); R33.9 Retention of urine, unspecified; E78.5 Hyperlipidemia, unspecified; I10 Essential (primary) hypertension; J44.9 Chronic obstructive pulmonary disease, unspecified; Z91.011 Allergy to milk products; Z88.2 Allergy status to sulfonamides; Z79.82 Long term (current) use of aspirin; Z79.899 Other long term (current) drug therapy; Z87.891 Personal history of nicotine dependence
CPT/HCPCS: 36415; 51702; 74177; 80053; 85025; 99284-25; Q9967

== ENCOUNTER → 2021-10-06 | Outpatient (CLI) | payer OTHER ==
[~2021-10-06] MED LIST changes: +Magic Bullet10 MG PR
== END | disposition home or self-care (01) ==
LOC: LAB SHORT 09:22 → LAB 09:22
DX: B37.2 Candidiasis of skin and nail (principal); L21.8 Other seborrheic dermatitis; L82.0 Inflamed seborrheic keratosis; L29.8 Other pruritus
CPT/HCPCS: 87070; 87205

== ENCOUNTER 2021-11-16 01:16 | Day surgery (SDC) | payer OTHER ==
[~2021-11-16 01:16] MED LIST changes: +DOXY100 PO; +Prednisone50 MG PO
== END 2021-11-16 23:26 | disposition home or self-care (01) ==
LOC: WOUND 01:16
DX: L89.312 Pressure ulcer of right buttock, stage 2 (principal); L89.322 Pressure ulcer of left buttock, stage 2; Z88.2 Allergy status to sulfonamides; Z87.891 Personal history of nicotine dependence; I10 Essential (primary) hypertension; J44.9 Chronic obstructive pulmonary disease, unspecified; E78.5 Hyperlipidemia, unspecified
CPT/HCPCS: G0463

== ENCOUNTER 2021-12-20 00:41 | Day surgery (SDC) | payer OTHER | END 2021-12-20 23:51 | disposition home or self-care (01) | LOC: WOUND 00:41 | DX: L89.312 Pressure ulcer of right buttock, stage 2 (principal); L89.322 Pressure ulcer of left buttock, stage 2 | CPT/HCPCS: G0463 ==

== ENCOUNTER 2021-12-27 07:15 | Day surgery (SDC) | payer OTHER | END 2021-12-27 23:06 | disposition home or self-care (01) | LOC: WOUND 07:15 | DX: L89.322 Pressure ulcer of left buttock, stage 2 (principal); L89.312 Pressure ulcer of right buttock, stage 2 | CPT/HCPCS: A9270; G0463 ==

== ENCOUNTER 2022-01-10 02:06 | Day surgery (SDC) | payer OTHER | END 2022-01-10 23:25 | disposition home or self-care (01) | LOC: WOUND 02:06 | DX: L89.312 Pressure ulcer of right buttock, stage 2 (principal); L89.322 Pressure ulcer of left buttock, stage 2 | CPT/HCPCS: A9270; G0463 ==

== ENCOUNTER 2022-04-11 00:15 | Day surgery (SDC) | payer OTHER | END 2022-04-11 22:52 | disposition home or self-care (01) | LOC: WOUND 00:15 | DX: L89.153 Pressure ulcer of sacral region, stage 3 (principal); Z88.2 Allergy status to sulfonamides | CPT/HCPCS: G0463 ==

== ENCOUNTER 2022-05-09 01:14 | Day surgery (SDC) | payer OTHER | END 2022-05-09 23:39 | disposition home or self-care (01) | DX: L89.153 Pressure ulcer of sacral region, stage 3 (principal) ==

== ENCOUNTER 2022-06-18 06:06 | Inpatient (IN) | payer OTHER ==
[~2022-06-18] VITALS: Ht 175.3 cm; Wt 64.5 kg
[~2022-06-18 06:06] MED LIST changes: -ATOR20 PO
[2022-06-18 06:36] LABS: BASOPHILS ABSOLUTE AUTO 0.06 K/mm3 (0.00-0.23); BASOPHILS PERCENT AUTO 1 % (0-2); EOSINOPHILS ABSOLUTE AUTO 0.88 K/mm3 (0.00-0.68); EOSINOPHILS PERCENT AUTO 7 % (0-6); Hematocrit 40.3 % (37.0-53.0); Hemoglobin 12.5 g/dL (13.5-17.5); IMMATURE GRAN ABSOLUTE AUTO 0.05 K/mm3 (0.00-0.10); IMMATURE GRAN PERCENT AUTO 0 % (0-1); LYMPHOCYTES ABSOLUTE AUTO 1.59 K/mm3 (0.84-5.20); LYMPHOCYTES PERCENT AUTO 12 % (21-46); MONOCYTES ABSOLUTE AUTO 0.78 K/mm3 (0.16-1.47); MONOCYTES PERCENT AUTO 6 % (4-13); Mean Corpuscular Volume 87 fL (80-100); Mean Platelet Volume 9.2 fL (9.1-12.4); NEUTROPHILS ABSOLUTE AUTO 9.57 K/mm3 (1.96-9.15); NEUTROPHILS PERCENT AUTO 74 % (41-73); Platelet Count 269 K/mm3 (150-400); RDW Coefficient Variation 15.2 % (11.7-14.2); Red Blood Cell Count 4.63 M/mm3 (4.30-5.90); White Blood Cell Count 12.93 K/mm3 (4.00-11.30)
[2022-06-18 06:42] LABS: Source, Urine Foley catheter
[2022-06-18 06:58] LABS: Albumin, Blood 3.8 g/dL (3.4-5.0); Albumin/Globulin Ratio 1.1 (0.8-1.8); Bilirubin, Total 0.7 mg/dL (0.1-1.0); Bun/Creatinine Ratio 17.7 (12.0-20.0); Calcium, Blood 9.3 mg/dL (8.5-10.1); Creatinine, Blood 0.74 mg/dL (0.60-1.20); Globulin, Blood 3.5 g/dL (2.2-4.0); Magnesium, Blood 2.5 mg/dL (1.6-2.4); Potassium, Blood 4.2 mmol/L (3.5-5.5); Total Protein, Blood 7.3 g/dL (6.4-8.2)
[2022-06-18 07:25] LABS: Appearance, Urine Clear (Clear); Bilirubin, Urine Neg (Neg); Blood, Urine Neg (Neg); Color, Urine Yellow (P-Yellow); Glucose Qualitative, Urine Neg (Neg); Ketones, Urine Neg (Neg); Leukocyte Esterase, Urine Neg (Neg); Nitrite, Urine Neg (Neg); Protein, Urine 2+ (Neg); Specific Gravity, Urine 1.025 (1.003-1.022); Urobilinogen, Urine NORM (Normal)
[2022-06-18 07:30] LABS: Influenza A, PCR NEGATIVE (NEGATIVE); Influenza B, PCR NEGATIVE (NEGATIVE); Resp Syncytial Virus, PCR NEGATIVE (NEGATIVE); SARS-Cov-2 (COVID-19) PCR, MMC NEGATIVE (NEGATIVE)
[2022-06-18 07:47] LABS: Bacteria Mod /hpf; Mucus Light (0-Heavy); Squamous Epithelial Cells Mod /hpf (Few); White Blood Cells, Urine 0-2 /hpf (0-5)
[2022-06-18 07:48] LABS: Base Excess Venous 4.9 mmol/L; Bicarbonate Venous 26.6 mmol/L (24.0-30.0); PCO2 Venous 57.5 mmHg (38-42); PO2 Venous 31.9 mmHg (38-42); pH Blood Venous 7.34 (7.34-7.37)
--- NOTE | 2022-06-18 15:57 | NUR ---
SHIFT SUMMARY PATIENT IS ALERT AND ORIENTED BUT BILL [employer] [place]. PATIENT IS A RECENT ADMIT FROM ED. PATIENT IS ON 4L NC. PATIENT CANNOT RECALL BASELINE O2. WAS AT BEDSIDE AND IS A POOR HISTORIAN. PATIENT HAS NOT COMPLAINED OF PAIN, NAUSEA, SOB OR VOMITTING THIS SHIFT. PATIENT IS RESTING COMFORTABLY IN BED. WILL MONITOR UNTIL SHIFT CHANGE.
[2022-06-19 05:55] LABS: Hemoglobin 11.4 g/dL (13.5-17.5); Mean Corpuscular HGB 26.8 pg (26.0-34.0); Mean Corpuscular HGB Conc 31.7 g/dL (31.5-36.5); Mean Corpuscular Volume 85 fL (80-100); Mean Platelet Volume 9.4 fL (9.1-12.4); Platelet Count 262 K/mm3 (150-400); RDW Standard Deviation 45.8 fL (35.1-46.3); Red Blood Cell Count 4.25 M/mm3 (4.30-5.90); White Blood Cell Count 11.52 K/mm3 (4.00-11.30)
[2022-06-19 06:17] LABS: Bun/Creatinine Ratio 34.9 (12.0-20.0); Creatinine, Blood 0.72 mg/dL (0.60-1.20); Potassium, Blood 4.1 mmol/L (3.5-5.5)
--- NOTE | 2022-06-19 07:54 | NUR ---
SLEPT DEEPLY OVERNIGHT. WOKE PATIENT ONLY TO ASSIST TO STRAIGHTEN COVERS AND GENTLLY REPOSITION. MEPILEX REMAINED SECURE OVERNIGHT OVER VERY LARGE SACRAL WOUND(S). PHOTO ON CHART. PATIENT REQUIRES TWO ASSIST, A GAIT BELT AND FWW TO TX TO CHAIR OR BSC
--- NOTE | 2022-06-19 15:39 | NUR ---
SHIFT SUMMARY PATIENT IS ALERT AND ORIENTED. PATIENT HAS BEEN PLEASENT AND COOPERATIVE WITH CARE. PATIENTS HAS BEEN AT BEDSIDE ALL SHIFT. THIS RN PUT IN WOUND CARE CONSULT AND TREAT. WOUND CARE NOT IN TODAY AND ALERTED CHARGE NURSE WHO WILL BE HERE TO RELAY TO TOMORROW DAY SHIFT. BED IN LOCKED AND LOWEST POSITION. CALL LIGHT IN PLACE. WILL MONITOR UNTIL SHIFT CHANGE.
--- NOTE | 2022-06-20 03:41 | NUR ---
ORACLE DEVELOPER SUMMARY A&OX4. PATIENT EFFECTIVELY COMMUNICATES NEEDS. VSS. RR EVEN AND UNLABORED ON 4L O2. SPO2 >92%. PATIENT REPORTED TO DON 2L O2 @BASELINE. TELE REVEALS SINUS ARRHYTHMIA, HR 80'S. RUIZ IS WELL-DRAINING TO GRAVITY. PATIENT OBSERVED TO BE SLEEPING COMFORTABLY THROUGHOUT THE NIGHT. NO ACUTE EVENTS. BED LOW AND LOCKED. CALL LIGHT WITHIN REACH. THIS RN WILL CONTINUE TO CLOSELY MONITOR. THIS RN WILL INFORM DAYSHIFT THAT A WOUND CARE CONSULT REQUEST WAS PLACED YESTERDAY AFTERNOON.
[2022-06-20 06:53] LABS: Bun/Creatinine Ratio 44.5 (12.0-20.0); Creatinine, Blood 0.85 mg/dL (0.60-1.20); Potassium, Blood 4.4 mmol/L (3.5-5.5)
--- NOTE | 2022-06-20 19:43 | NUR ---
SHIFT SUMMARY PT A&OX4 AND PLEASANT. FORGETFUL AT TIMES. PHYSICAL THERAPY WORKED WITH PT AND PT TOLERATED WELL. PT UP TO CHAIR FOR AFTERNOON. OXYGEN TITRATED DOWN TO 3L OXYGEN. NO C/O PAIN. PT REPORTED NO BM FOR 3 DAYS. NOTIFIED SUPERVISOR PAINTING DEPARTMENT NURSE THAT PT HAS MOM PRN AT NIGHT AND NO BM FOR 3 DAYS. BED IN LOWEST POSITION AND REPORT GIVEN TO SUPERVISOR PAINTING DEPARTMENT NURSE.
--- NOTE | 2022-06-21 03:32 | NUR ---
CONTINUOUS MINING MACHINE COAL MINER SUMMARY A&OX4. PATIENT EFFECTIVELY COMMUNICATES NEEDS. VSS. SPO2 >92% ON 4L NC. RR EVEN AND SLIGHTLY LABORED AT REST. MOIST COUGH OBSERVED AFTER PATIENT CONSUMES THIN LIQUIDS. THIS RN WILL REPORT FINDING TO DAYSHIFT. TELE REVEALS SINUS RHYTHM, 80'S. MOM ADMINISTERED PER ORDERS SECONDARY TO NO BM IN 3 DAYS. BEDREST MAINTAINED. NO ACUTE EVENTS. BED LOW AND LOCKED. CALL LIGHT WITHIN REACH. THIS RN WILL CONTINUE TO MONITOR.
[2022-06-21 08:11] LABS: Calcium, Blood 9.2 mg/dL (8.5-10.1); Creatinine, Blood 0.75 mg/dL (0.60-1.20); Potassium, Blood 4.5 mmol/L (3.5-5.5)
[2022-06-21] MEDS ORDERED: FURO20 PO (12:42)
[2022-06-21] MEDS ORDERED: PRED20 PO (12:42)
--- NOTE | 2022-06-21 16:03 | NUR ---
DISCHARGE PATIENT TRANSPORTED VIA WHEELCHAIR TO PRIVATE VEHICLE. DISCHARGE INSTRUCTIONS EXPLAINED TO AND PATIENT. BOTH STATED UNDERSTANDING. PACKET SENT WITH PATIENT. BELONGINGS SENT WITH PATIENT. IV REMOVED WITHOUT DIFFICULTY. TELE REMOVED WITHOUT DIFFICULTY. RUIZ DISCONTINUED THIS AM. PATIENT HAD NOT VOIDED BY 1530, BLADDER SCAN AT THAT TIME SHOWED 500MLS. DR. GU NOTIFIED, ORDERS TO PLACE RUIZ AND DISCHARGE PATIENT WITH IT. PATIENT AGREEABLE. 14F RUIZ CATH PLACED, STERILE TECHNIQUE MAINTAINED, PATIENT TOLERATED WELL. O2 DELIVERED TO PATIENT. [facility], [place] TO MEET PATIENT AT HOME. MEDICATIONS FAXED TO PREFERRED PHARMACY. PATIENT MADE FOLLOW UP APPOINTMENT WITH PCP.
[2022-06-23] MEDS ORDERED: POTA10T PO (15:16)
[2022-06-23] MEDS ORDERED: GEMTESA75 MG PO (15:19)
[2022-06-23] MEDS ORDERED: AZIT250 PO (15:25)
[2022-06-24] MEDS ORDERED: IPRAT-ALBUT 0.5-3 ML INH (10:54)
[2022-06-24] MEDS ORDERED: ACET325 PO (10:56)
[2022-06-24] MEDS ORDERED: CLOP75 PO (11:03)
== END 2022-06-21 16:23 | disposition home health service (06) | DRG 189 ==
LOC: ER 06:06 → ERHOLD 09:51 → MEDS 13:42
PROVIDERS: Student in an Organized Health Care Education/Training Program; ADMIT Internal Medicine
DX: J96.01 Acute respiratory failure with hypoxia (principal); J44.1 Chronic obstructive pulmonary disease with (acute) exacerbation; I50.32 Chronic diastolic (congestive) heart failure; I47.1 Supraventricular tachycardia; J96.02 Acute respiratory failure with hypercapnia; I11.0 Hypertensive heart disease with heart failure; L89.892 Pressure ulcer of other site, stage 2; E78.5 Hyperlipidemia, unspecified; N40.0 Benign prostatic hyperplasia without lower urinary tract symptoms; R54 Age-related physical debility; Z20.822 Contact with and (suspected) exposure to COVID-19; Z88.2 Allergy status to sulfonamides; Z79.51 Long term (current) use of inhaled steroids; Z79.899 Other long term (current) drug therapy; Z86.73 Personal history of transient ischemic attack (TIA), and cerebral infarction without residual deficits; Z79.02 Long term (current) use of antithrombotics/antiplatelets; Z79.82 Long term (current) use of aspirin; Z79.52 Long term (current) use of systemic steroids; Z79.2 Long term (current) use of antibiotics; Z98.890 Other specified postprocedural states; Z87.891 Personal history of nicotine dependence
CPT/HCPCS: 0241U; 36415; 51702; 71045; 80048; 80053; 81001; 82803; 83735; 83880; 84145; 85025; 85027; 87086; 93005; 93010; 94640; 94664; 94760; 94761; 96365; 96375; 96376; 97110; 97116; 97162; 97530; 99285-25; A9270; J1650; J1940; J2930

== ENCOUNTER 2022-07-07 02:38 | Day surgery (SDC) | payer OTHER ==
[~2022-07-07 02:38] MED LIST changes: +CLOP75 PO; +GEMTESA75 MG PO; +IPRAT-ALBUT 0.5-3 ML INH; +POTA10T PO
[2022-07-10] MEDS ORDERED: LEVO750 PO (21:38)
== END 2022-07-07 23:12 | disposition home or self-care (01) ==
LOC: WOUND 02:38
DX: L89.313 Pressure ulcer of right buttock, stage 3 (principal); L89.323 Pressure ulcer of left buttock, stage 3; Z87.891 Personal history of nicotine dependence; Z88.2 Allergy status to sulfonamides
CPT/HCPCS: A9270; G0463

== ENCOUNTER 2022-07-20 00:37 | Day surgery (SDC) | payer OTHER | END 2022-07-20 22:56 | disposition home or self-care (01) | LOC: WOUND 00:37 | DX: L89.313 Pressure ulcer of right buttock, stage 3 (principal); L89.323 Pressure ulcer of left buttock, stage 3 | CPT/HCPCS: A9270; G0463 ==

== ENCOUNTER 2022-08-01 00:25 | Day surgery (SDC) | payer OTHER | END 2022-08-01 22:49 | disposition home or self-care (01) | LOC: WOUND 00:25 | DX: L89.313 Pressure ulcer of right buttock, stage 3 (principal); L89.323 Pressure ulcer of left buttock, stage 3; L24.A2 Irritant contact dermatitis due to fecal, urinary or dual incontinence | CPT/HCPCS: G0463 ==

== ENCOUNTER 2022-08-08 13:45 | Emergency (ER) | payer OTHER ==
[~2022-08-08] VITALS: Ht 175.3 cm; Wt 63.5 kg
[2022-08-08 14:33] LABS: BASOPHILS ABSOLUTE AUTO 0.04 K/mm3 (0.00-0.23); BASOPHILS PERCENT AUTO 0 % (0-2); EOSINOPHILS ABSOLUTE AUTO 0.28 K/mm3 (0.00-0.68); EOSINOPHILS PERCENT AUTO 2 % (0-6); Hematocrit 35.7 % (37.0-53.0); Hemoglobin 11.1 g/dL (13.5-17.5); IMMATURE GRAN ABSOLUTE AUTO 0.06 K/mm3 (0.00-0.10); IMMATURE GRAN PERCENT AUTO 1 % (0-1); LYMPHOCYTES ABSOLUTE AUTO 0.83 K/mm3 (0.84-5.20); LYMPHOCYTES PERCENT AUTO 7 % (21-46); MONOCYTES ABSOLUTE AUTO 0.53 K/mm3 (0.16-1.47); MONOCYTES PERCENT AUTO 4 % (4-13); Mean Corpuscular HGB 28.2 pg (26.0-34.0); Mean Corpuscular HGB Conc 31.1 g/dL (31.5-36.5); Mean Corpuscular Volume 91 fL (80-100); Mean Platelet Volume 9.6 fL (9.1-12.4); NEUTROPHILS ABSOLUTE AUTO 10.94 K/mm3 (1.96-9.15); NEUTROPHILS PERCENT AUTO 86 % (41-73); Platelet Count 190 K/mm3 (150-400); RDW Coefficient Variation 18.5 % (11.7-14.2); RDW Standard Deviation 60.8 fL (35.1-46.3); Red Blood Cell Count 3.94 M/mm3 (4.30-5.90); White Blood Cell Count 12.68 K/mm3 (4.00-11.30)
[2022-08-08 14:43] LABS: Albumin, Blood 3.2 g/dL (3.4-5.0); Albumin/Globulin Ratio 0.8 (0.8-1.8); Bilirubin, Total 0.6 mg/dL (0.1-1.0); Calcium, Blood 9.2 mg/dL (8.5-10.1); Creatinine, Blood 0.42 mg/dL (0.60-1.20); Globulin, Blood 4.1 g/dL (2.2-4.0); Potassium, Blood 5.3 mmol/L (3.5-5.5); Total Protein, Blood 7.3 g/dL (6.4-8.2)
[2022-08-08] MEDS ORDERED: MIRALAX17 GM PO (17:19)
== END 2022-08-08 17:58 | disposition home or self-care (01) ==
LOC: ER 13:45
PROVIDERS: Student in an Organized Health Care Education/Training Program
DX: J44.1 Chronic obstructive pulmonary disease with (acute) exacerbation (principal); K59.00 Constipation, unspecified; E78.5 Hyperlipidemia, unspecified; N40.0 Benign prostatic hyperplasia without lower urinary tract symptoms; I11.0 Hypertensive heart disease with heart failure; I50.30 Unspecified diastolic (congestive) heart failure; Z88.2 Allergy status to sulfonamides; Z79.899 Other long term (current) drug therapy; Z79.82 Long term (current) use of aspirin; Z79.52 Long term (current) use of systemic steroids; Z86.73 Personal history of transient ischemic attack (TIA), and cerebral infarction without residual deficits
CPT/HCPCS: 71045; 80053; 83880; 84484; 85025; 93005; 93010; 94644; 94664; 99284-25; A9270

== ENCOUNTER 2022-08-15 01:13 | Day surgery (SDC) | payer OTHER | END 2022-08-15 22:57 | disposition home or self-care (01) | LOC: WOUND 01:13 | DX: L89.313 Pressure ulcer of right buttock, stage 3 (principal); L89.323 Pressure ulcer of left buttock, stage 3; L89.229 Pressure ulcer of left hip, unspecified stage | CPT/HCPCS: A9270; G0463 ==

== ENCOUNTER 2022-08-16 11:01 | Inpatient (IN) | payer OTHER ==
[~2022-08-16] VITALS: Ht 180.3 cm; Wt 63.6 kg
[2022-08-16 11:43] LABS: BASOPHILS ABSOLUTE AUTO 0.04 K/mm3 (0.00-0.23); BASOPHILS PERCENT AUTO 0 % (0-2); EOSINOPHILS ABSOLUTE AUTO 0.29 K/mm3 (0.00-0.68); EOSINOPHILS PERCENT AUTO 2 % (0-6); Hemoglobin 11.2 g/dL (13.5-17.5); IMMATURE GRAN ABSOLUTE AUTO 0.09 K/mm3 (0.00-0.10); IMMATURE GRAN PERCENT AUTO 1 % (0-1); LYMPHOCYTES PERCENT AUTO 6 % (21-46); MONOCYTES ABSOLUTE AUTO 1.02 K/mm3 (0.16-1.47); MONOCYTES PERCENT AUTO 7 % (4-13); Mean Corpuscular HGB Conc 31.1 g/dL (31.5-36.5); Mean Corpuscular Volume 90 fL (80-100); Mean Platelet Volume 9.5 fL (9.1-12.4); NEUTROPHILS ABSOLUTE AUTO 13.29 K/mm3 (1.96-9.15); NEUTROPHILS PERCENT AUTO 85 % (41-73); Platelet Count 246 K/mm3 (150-400); RDW Coefficient Variation 17.7 % (11.7-14.2); RDW Standard Deviation 58.4 fL (35.1-46.3); White Blood Cell Count 15.63 K/mm3 (4.00-11.30)
[2022-08-16 11:53] LABS: Albumin, Blood 2.9 g/dL (3.4-5.0); Albumin/Globulin Ratio 0.7 (0.8-1.8); Bilirubin, Total 0.7 mg/dL (0.1-1.0); Calcium, Blood 9.3 mg/dL (8.5-10.1); Creatinine, Blood 0.65 mg/dL (0.60-1.20); Globulin, Blood 4.3 g/dL (2.2-4.0); Potassium, Blood 4.5 mmol/L (3.5-5.5); Total Protein, Blood 7.2 g/dL (6.4-8.2)
[2022-08-16 12:23] LABS: Influenza A, PCR NEGATIVE (NEGATIVE); Influenza B, PCR NEGATIVE (NEGATIVE); Resp Syncytial Virus, PCR NEGATIVE (NEGATIVE); SARS-Cov-2 (COVID-19) PCR, MMC NEGATIVE (NEGATIVE)
[2022-08-16 12:28] LABS: Bicarbonate Venous 29.2 mmol/L (24.0-30.0); PCO2 Venous 62.3 mmHg (38-42); pH Blood Venous 7.33 (7.34-7.37)
[2022-08-16 17:00] LABS: Source, Urine Foley catheter
[2022-08-16 17:02] LABS: Appearance, Urine Clear (Clear); Bilirubin, Urine Neg (Neg); Blood, Urine 3+ (Neg); Color, Urine Yellow (P-Yellow); Glucose Qualitative, Urine Neg (Neg); Ketones, Urine 1+ (Neg); Leukocyte Esterase, Urine 2+ (Neg); Nitrite, Urine Neg (Neg); Protein, Urine 2+ (Neg); Specific Gravity, Urine 1.025 (1.003-1.022); Urobilinogen, Urine NORM (Normal)
[2022-08-16 17:14] LABS: Calcium Oxalate Crystals Rare /hpf; White Blood Cells, Urine 25-50 /hpf (0-5)
[2022-08-16 17:15] LABS: Bacteria Few /hpf; Renal Epithelial Few /hpf (0-Rare); Squamous Epithelial Cells Rare /hpf (Few); Transitional Epithelial Cells Few /hpf (0-Rare)
[2022-08-16 17:39] LABS: Bicarbonate Venous 30.1 mmol/L (24.0-30.0); PCO2 Venous 55.9 mmHg (38-42); pH Blood Venous 7.39 (7.34-7.37)
--- NOTE | 2022-08-16 19:14 | NUR ---
ADMIT/SHIFT SUMMARY: PT IS NEW ADMIT, ARRIVING F/ER APPROX 1430. PT ARRIVES A&Ox4, SPEECH SOFT, PT IS COOPERATIVE W/CARE. PT ARRIVED ON BIPAP AT 12/6 AND 35% FIO2, CURRENTLY MAINTAINING O2 SATS >90% ON BASELINE 4 L NC PER PT REQUEST. RESPIRATIONS SLIGHTLY LABORED AND TACHYPNEIC. SR ON MONITOR W/RATE 80s-90s, PT DENIES CP. NPO STATUS MAINTAINED. CHRONIC RUIZ DC'd AND REPLACED, NEW INDWELLING RUIZ DRAINING TO GRAVITY. EXCORIATION TO COCCYX AND ULCERATION TO L HIP W/PURULENT DRAINAGE, PHOTOS TAKEN. BOTH WOUNDS CLEANED AND REDRESSED. WOUND CONSULTATION HAS BEEN PLACED. FLUIDS INFUSING TO RFA IV. PER PT SPOUSE (TUNDE) - AT BASELINE: PT USES O2 CONTINUOUSLY AT 4 L/MIN NC; PT AMBULATES W/WALKER D/TO R SIDE WEAKNESS; PT PREFERS SOFT BITE SIZE DIET; PT SWALLOWS PILLS WHOLE IN APPLESAUCE. REPORT HAS BEEN GIVEN TO LAURIE JASON TO ASSUME CARE OF PT.
[2022-08-17 04:08] LABS: Hematocrit 31.9 % (37.0-53.0); Mean Corpuscular HGB 27.8 pg (26.0-34.0); Mean Corpuscular HGB Conc 31.3 g/dL (31.5-36.5); Mean Corpuscular Volume 89 fL (80-100); Mean Platelet Volume 9.5 fL (9.1-12.4); Platelet Count 228 K/mm3 (150-400); RDW Coefficient Variation 17.6 % (11.7-14.2); RDW Standard Deviation 56.7 fL (35.1-46.3); White Blood Cell Count 10.86 K/mm3 (4.00-11.30)
[2022-08-17 04:29] LABS: Bun/Creatinine Ratio 26.6 (12.0-20.0); Calcium, Blood 8.6 mg/dL (8.5-10.1); Creatinine, Blood 0.49 mg/dL (0.60-1.20); Potassium, Blood 4.1 mmol/L (3.5-5.5)
--- NOTE | 2022-08-17 06:30 | NUR ---
PATIENT AOX3-4. FOLLOWS COMMANDS AND MOVES ALL EXREMITIES. SR WITH STABLE BP. ON 3L NC, WHICH IS BASELINE FOR PATIENT. RUIZ IN PLACE AND PATENT.
--- NOTE | 2022-08-17 16:48 | NUR ---
WOUND CARE PATIENT IS SEEN AT WOUND CLINIC AND KNOWN TO THIS RN. L HIP WOUND NEW AND APPEARS TO BE AN ABCESS. WOUND CULTURE OBTAINED PER DR. LARRY. WOUND PHOTOS AND ASSESSMENTS IN HARD CHART. ORDERS IN [email or web address].
--- NOTE | 2022-08-17 18:07 | NUR ---
SHIFT SUMMARY PT ALERT, SOFT SPOKEN. SOME CONFUSION THIS AM. SP02>90% ON 3L NC OR BIPAP. PT INITALLY REFUSED BIPAP. LABORED BREATHING, RETRACTIONS NOTED. PT ENCOURAGED TO WEAR BIPAP FOR "15 MIN". PT AGREED. WORK OF BREATHING DECREASED W/ BIPAP. PT'S IN ROOM SHORTLY AFTER AND ENCOURAGED PT TO CONTINUE WEARING. PT WORE FOR SEVERAL BURSTS T/O THE DAY. BREATHING NOW ON 3L, NOT LABORED. TELEMETRY SHOWS NSR/AFIB/SINUS ARRHYTHMIA. PT CURRENTLY HR 80'S. NS INFUSING PER EMAR. ABX INFUSED PER EMAR. WOUND RN CAME TO ROOM THIS AM, REDRESSED WOUND, SEE PICS IN CHART. PT REPOSITIONED Q2H. RUIZ CATHETER DRAINING TO GRAVITY. ATTEMPTED BM THIS SHIFT WITH NO SUCCESS. DENIED PAIN. CALL LIGHT IN REACH.
--- NOTE | 2022-08-18 06:04 | NUR ---
SHIFT SUMMARY PATIENT ALERT AND ORIENTED X3-4. OCCASIONALLY FORGETFUL AND CONFUSED. BED ALARM ON PATIENT IS WEAK AND ATTEMPTED TO GET OUT OF BED BY HIMSELF. VITAL SIGNS STABLE. LUNG SOUNDS COARSE AND PATIENT BECOMES DYSPNIC UPON EXERTION. SPO2 >90% ON 3 LITERS O2 VIA NASAL CANULA. PATIENT AFIB WITH PVC'S IN THE 90'S PER TELEMETRY. NO ACUTE ISSUES NOTED OVERNIGHT. CALL LIGHT WITHIN REACH.
--- NOTE | 2022-08-18 18:39 | NUR ---
SHIFT SUMMARY PT HAD NO CHANGES AT START OF SHIFT. SLIGHT CONFUSION, BUT ABLE TO MAKE NEEDS KNOWN. SP02>90% ON 3L NC. LUNGS COARSE. TELEMETRY SHOWED NSR W/ PACS, HR 80'S MOST OF DAY. THIS EVENING PT BEGAIN TO DESAT TO MID 80'S, WORK OF BREATHING LABORED. PLACED ON BIPAP. CONVERTED TO AFIB, HR 140'S-150'S. ATTEMPTING TO TAKE MASK OFF. CALL PLACED TO MD LARRY. [facility] EM[facility]. PT CURRENTLY CALM, RESTING WITH EYES CLOSED, THOUGH ABLE TO RESPOND TO VERBAL STIMULI. BIPAP CURRENTLY ON PT. TELEMETRY CONTINUES TO SHOW AFIB, THOUGH HR CURRENTLY 110'S. RUIZ CATHETER DRAINING TO GRAVITY. UP TO BSC TO ATTEMPT A BM WITH NO SUCCESS. BOWEL CARE GIVEN PER EMAR. PT ABLE TO STAND AT SIDE OF BED THIS AM FOR SHORT MOMENT. TOO SHORT OF BREATHE TO WORK WITH PT TODAY. PT'S STATES, "WE TALKED ABOUT DYING AND ASSISTED LIVING THIS WEEK. DO YOU THINK HE'S GIVING UP?" PT'S IN ROOM ALL DAY SUPPORTING PT. CALL LIGHT INREACH.
--- NOTE | 2022-08-19 00:06 | NUR ---
PHYSICIAN COMMUNICATION CONTACTED DIETITIAN HELPER RESIDENT, DR Lilly TO NOTIFY HER THAT THE PATIENT WAS AGITATED AND PULLING AT HIS BIPAP WHICH HE IS CURRENTLY DEPENDENT ON. INFORMED HER THAT THE PATIENT PREVIOUSLY RECEIVED A ONE TIME DOSE OF 0.5 MG IV ATIVAN AND ASKED IF HE COULD HAVE ANOTHER DOSE. DR Lilly AGREED TO ORDERING ANOTHER ONE TIME DOSE.
--- NOTE | 2022-08-19 05:59 | NUR ---
SHIFT SUMMARY PATIENT ALERT AND ORIENTED TO SELF ONLY, UNSURE OF WHO HIS WAS. PATIENT WAS CONFUSED AND AGITATED OVERNIGHT, TRYING TO PULL HIS BIPAP MASK OFF AND UNABLE TO BE REDIRECTED. PATIENT'S AT BEDSIDE TO HELP EASE PATIENT'S AGITATION, PATIENT MEDICATED TWICE WITH 0.5 MG IV ATIVAN AND ONCE WITH 5 MG IM ZYPREXA PER EMAR FOR AGITATION. PATIENT'S LUNG SOUNDS ARE COARSE THROUGHOUT, HE IS CURRENTLY DEPENDENT ON BIPAP FOR WORK OF BREATHING, SETTINGS 16/12 30% FIO2. HEART IS AFIB WITH PVC'S IN THE 100'S. WILL CONTINUE TO MONITOR. CALL LIGHT WITHIN REACH.
--- NOTE | 2022-08-19 11:51 | NUR ---
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 Father Sami was contacted by phone and text and will come to visit Pt. later today."
--- NOTE | 2022-08-19 12:43 | NUR ---
CARE ASSUMPTION PT MINIMALLY RESPONSIVE UPON CARE ASSUMPTION. REPSONDS TO PAIN, SOME VERBAL STIMULI. MOVING EXTREMETIES SOME, PULLS AWAY FROM PAIN, BP CUFF, LAB ETC. PULLED OFF BIPAP TUBE ONCE THIS AM. BUT MAJORITY OF TIME SLEEPING. SP02>90% ON BIPAP 27/05, 30% FI02. TELEMETRY SHOWS NSR W/ PACS, HR 70'S-80'S. VSS. RUIZ CATHETER DRAINING YELLOW URINE TO GRAVITY. BNP DRAWN THIS AM: 422. MD LARRY W/ ORDER FOR LASIX. LASIX GIVEN AND WORKING EVIDENCED BY RUIZ CATHETER. MD LARRY W/ ORDERS FOR CHEST XRAY AND LABS. LAB IN ROOM, POKED 3 TIMES, PT DIFFICULT STICK. ABLE TO DRAWN ENOUGH FOR ONE TUBE, NEW FROG SHAKER IN ROOM TO ATTEMPT. , KEN, SPENT NIGHT W/ PT. ASSUMED CARE TO BOTH AND PT ASLEEP IN BED. AN INFLUX OF FAMILY ARRIVED THIS MORNING FROM OUT OF TOWN WITH MANY QUESTIONS. MD LARRY IN ROOM TO ANSWER QUESTIONS GRACEFULLY AND IMFORMATIVELY. FATHER CLEATUS IN ROOM REQUESTED BY FAMILY. ABX INFUSING PER EMAR. REPOSITIONED Q2H. CALL LIGHT IN REACH.
[2022-08-19 13:41] LABS: Base Excess Venous 13.9 mmol/L; Bicarbonate Venous 34.6 mmol/L (24.0-30.0); PCO2 Venous 63.2 mmHg (38-42)
[2022-08-19 13:53] LABS: Bun/Creatinine Ratio 35.1 (12.0-20.0); Calcium, Blood 8.6 mg/dL (8.5-10.1); Creatinine, Blood 0.57 mg/dL (0.60-1.20); Potassium, Blood 3.9 mmol/L (3.5-5.5)
--- NOTE | 2022-08-19 18:35 | NUR ---
review of pt with nursing. family want to see martin damon. advised sami coleman of their needs and concerns.
--- NOTE | 2022-08-19 19:01 | NUR ---
SHIFT SUMMARY PT BEGINNING TO OCCASIONALLY OPEN EYES THIS AFTERNOON. ORAL DONE, PT FOLLOWED COMMANDS TO OPEN MOUTH, COUGH. REMAINS LETHARGIC. PULLING AT MASK OCCASIONALLY. SP02>90% ON BIPAP, SEE PREVIOUS NOTE. CHEST XRAY DONE THIS AFTERNOON, SEE RESULTS. TELEMETRY SHOWS NSR W/ PACS, HR 80'S. RUIZ CATHETER DRAINING TO GRAVITY. IN ROOM TO HELP PT KEEP BIPAP ON. CALL LIGHT IN REACH.
--- NOTE | 2022-08-19 21:32 | NUR ---
ASSUMPTION OF CARE 1899 THIS RN ASSUMED CARE OF PT AT 1900. REPORT FROM LAURIE FARIA. PT IS ALERT, ORIENTATION IS HARD TO ASSESS DUE TO BIPAP MASK AND PT HAVING A HARD TIME SPEAKING, VOICE IS VERY SOFT/WHISPER. PT IS ABLE TO ANSWER Y/N QUESTIONS. VSS. BIPAP IN PLACE, ALTHOUGH PT IS PULLING AT CORDS AND MASK FREQUENTLY. PT REMINDED TO KEEP MASK ON AND IMPORTANCE OF MASK. PT SHAKES HEAD "YES" TO UNDERSTANDING. PT'S IS AT BEDSIDE. LUNG SOUNDS ARE COARSE/RHONCI THROUGHOUT. PT DENIES CP OR PRESSURE, DENIES SOB. PT SAY "YES" TO FEELING LIKE HE IS BREATHING OK. DENIES DIZZINESS OF LIGHTHEADNESS. RUIZ CATHETER IN PLACE AND DRAINING CLEAR YELLOW URINE TO GRAVITY. PER DAY SHIFT PT HAS TWO ULCERS; ONE ON HIP AND ONE ON COCCYX THAT ARE MANAGED BY WOUND CARE OUTPATIENT. MEPILEX IN PLACE ON BOTH AREAS; C/D/I. PT DENIES ANY NEEDS OR CONCERNS AT THIS TIME, WELL DENIES ANY NEEDS OR CONCERNS. CALL LIGHT IN REACH AND BED IN LOWEST POSITION
--- NOTE | 2022-08-20 00:35 | NUR ---
UPDATE PT CONTINUES TO BE RESTLESS AND AGITATED; PULLING AT BIPAP AND WANTING TO TAKE IT OFF. ZYPREXA 5 MG IM ADMINISTERED PER EMAR. ANTIBIOTICS INFUSING PER EMAR. 0000 VSS. AT BEDSIDE. ORAL CARE ALSO COMPLETED AT THIS TIME BEFORE ADMINSTRATION OF MEDICATION. PT REPOSITIONED AND MADE COMFORTABLE. EXPRESSES NO CONCERNS OR NEEDS AT THIS TIME.
--- NOTE | 2022-08-20 02:13 | NUR ---
UPDATE; ROUNDING PT STARTING TO GET A LITTLE RESTLESS, PULLING AT CORDS AND TUBES. PT REMINDED TO KEEP THEM ON AND THE PURPOSE OF THEM. PT WANTS TO "GET UP OUT OF BED". PT REDIRECTED AND REMINDED OF SITUATION. PT REPOSITIONED. PT DENIES PAIN, DENIES ANY NEEDS OR CONCERNS. BIPAP STILL IN PLACE, NO CHANGES TO SETTINGS. SPO2 MAINTAINING >91%. CALL LIGHT IN REACH AND BED IN LOWEST POSITION. AT BEDSIDE.
[2022-08-20 04:22] LABS: Base Excess Venous 14.9 mmol/L; Bicarbonate Venous 36.7 mmol/L (24.0-30.0); PCO2 Venous 47.2 mmHg (38-42); pH Blood Venous 7.51 (7.34-7.37)
[2022-08-20 04:32] LABS: Hematocrit 32.2 % (37.0-53.0); Hemoglobin 10.2 g/dL (13.5-17.5); Mean Corpuscular HGB 27.9 pg (26.0-34.0); Mean Corpuscular HGB Conc 31.7 g/dL (31.5-36.5); Mean Corpuscular Volume 88 fL (80-100); Platelet Count 229 K/mm3 (150-400); RDW Coefficient Variation 17.4 % (11.7-14.2); RDW Standard Deviation 56.9 fL (35.1-46.3); Red Blood Cell Count 3.65 M/mm3 (4.30-5.90); White Blood Cell Count 20.41 K/mm3 (4.00-11.30)
[2022-08-20 04:54] LABS: Bun/Creatinine Ratio 34.9 (12.0-20.0); Calcium, Blood 8.8 mg/dL (8.5-10.1); Creatinine, Blood 0.52 mg/dL (0.60-1.20); Potassium, Blood 3.2 mmol/L (3.5-5.5)
--- NOTE | 2022-08-20 06:23 | NUR ---
UPDATE PER MONITOR AND WARHEAD MAINTENANCE SPECIALIST; PT HR INCREASED TO 140 - 170. PT SUSTAINED AT THIS HR. PROVIDER NOTIFIED, NEW ORDERS FOR IV LOPRESSOR PUSH 5MG ONE TIME, NOW. THIS RN ADMINISTERED LOPRESSOR 5MG PER PROVIDER ORDER. HR NOW 115 - 120. WILL CONTINUE TO MONITOR UNTIL DAY SHIFT RN ARRIVES AND WILL UPDATE. THIS RN NOTIFIED CHARGE NURSE WELL. PT DENIES SX AND PT DID NOT APPEAR SYMPTOMATIC.
--- NOTE | 2022-08-20 06:38 | NUR ---
SHIFT SUMMARY PT VSS REMAINED STABLE, HOWEVER AROUND 0545 - 0600 PT HR INCREASED 140 - 170'S AND IN AFIB. SEE NURSING NOTE ABOUT THIS. PT ASYMPTOMATIC. MEDICATED PER ORDERS AND EMAR. HR NOW 1 TEENS TO 130'S STILL IN AFIB. PT ON BIPAP FOR ALL OF SHIFT. PT DID NOT TOLERATE IT WELL, HE IS PULLING AT IT AND WANTING IT OFF. PT MEDICATED X2 FOR AGITATION PER EMAR. MEDICATION SEEMED TO PROVIDE LITTLE RELAXATION, PT STILL FAIRLY RESTLESS AND PULLING AT MASK. AT BEDSIDE AND STAYED THE NIGHT W/PT. RUIZ IN PLACE AND DRAINING TO GRAVITY. PT RESPOSITIONED Q2 AND PRN. CBG STABLE. HARD TO FULLY ASSESS AND KNOW PT ORIENTATION D/T BIPAP, RESTLESSNESS AND AGITATION. PT ANSWERS Y/N QUESTIONS BUT AT TIMES ANSWERS ARE SLOWED OR NEED TO BE ASKED AGAIN. SPEECH IS SOFT AND DIFFICULT TO UNDERSTAND. CALL LIGHT IN REACH AND BED IN LOWEST POSITION. WILL UPDATE ONCOMING RN.
--- NOTE | 2022-08-20 10:10 | NUR ---
Recieved call from safety spec Gabe reporting Pt's declining condition and increase in O2 requirements. Goals of care conversation with family may be beneficial. Joint visit with Dr Loyola. Pt resting in bed with his eyes closed and on BIPAP. Pt's spouse Krista and 2 family friends are at bedside. Dr Loyola reviews plan of care and Pt's prognosis with spouse Krystyna. Therapeutic conversation takes place to consider comfort care and code status. Spouse reports thinking comfort care would be most beneficial for Pt and calls son Earl. Dr Loyola discusses prgnosis with son and options. Son also in agreement. Placed comfort care order, comfort care order set, ordered Morphine IV 5mg every hour as needed for pain or airhunger, IV Ativan 0.5-1mg every 4 hours as needed for anxiety, D/C maintenance mecications per V/O from Dr Loyola. Palliative Care will remain available
--- NOTE | 2022-08-20 11:37 | NUR ---
AM CARE NOTE: PT TRANSITIONED TO COMFORT CARE. PT'S HRR SUSTAINED AFIB THIS MORNING 130-160'S AFTER GIVING METOPROLOL PUSH AT 0630A PER LI RN, BP HAS BEEN SOFT 90-110'S, REMAINED ON BIPAP / 30% FIO2 SATS >94%. PT RESPONDS TO VERBAL STIMULI BUT MORE ON TO PAINFUL STIMULI WHEN TOUCH OR MOVED, CAN ONLY NOD WHEN ASKED QUESTIONS, CONTINUES TO PICK AND PULL ON BIPAP MASK AND TUBINGS. WAS AT THE BEDSIDE. PT WAS STARTED ON CARDIZEM GTT PT'S BLOOD PRESSURE WAS UNABLE TO TOLERATE SBP WENT DOWN TO 60'S MAP <50'S, CALLED PROVIDER AND WAS ABLE TO HAVE A DISCUSSION WITH AT THE BEDSIDE AND SON VIA PHONE WITH JAGRUTI SULLIVANCOMMUTATOR UNDERCUTTER NURSE FOR PLAN OF CARE AND DECIDED TO START PT ON COMFORT CARE. MORPHINE AND ATIVAN WAS GIVEN PRIOR TO REMOVING BIPAP MASK, PT NOW ON 2L OF O2 RESTING IN BED WITH THE . PT RESTING COMFORTABLY AT THIS TIME, WILL CONTINUE TO MONITOR
--- NOTE | 2022-08-20 18:36 | NUR ---
REPORT GIVEN TO TUNDE SULLIVAN, PT TRANSFERRED TO RM 222. AND SON REMAINS AT THE BEDSIDE AND PLANNING ON STAYING THE NIGHT, ALL BELONGINGS SENT WITH THE PT.
--- NOTE | 2022-08-20 18:39 | NUR ---
PT TRANSFERRED TO UNIT ON OWN BED, FAMILY PRESENT. FAMILY ORIENTED TO ROOM, PROVIDED WITH RECLINER/LINENS, COMFORT CARE CART REQUESTED TO BE BROUGHT TO THE ROOM.
--- NOTE | 2022-08-21 05:29 | NUR ---
SHIFT SUMMARY COMFORT CARE. RESTING WELL T/O NIGHT. AT BEDSIDE. PT APPEARS RELAXED & COMFORTABLE, REPOSITIONED 1X PER REQUEST OTHERWISE FAMILY REFUSED TURNS OR MEDS, STATING PT WAS COMFORTABLE. ON RA, E/U RESP, NO S/SX RESP DISTRESS. CALL LIGHT IN REACH, WILL MONITOR.
--- NOTE | 2022-08-21 08:48 | NUR ---
Comfort Care Visit Spoke with department clerk Delores and discussed case. Family resistant to offering comfort medication for air hunger but eventually accepted low dose Roxanol. Pt resting in bed with his eyes closed. Pt appears comfortable with no S/S of distress at this time. Moderate secretions noted. Spouse laying next to Pt with eyes closed. Pt and spouse left undisturbed at this time. Spoke with Primary RN Artemio, discussed case and recommendations for scopolamine patch be offered for secretions. Palliative Care will remain available
--- NOTE | 2022-08-21 19:40 | NUR ---
SHIFT SUMMARY COMFORT CARE PATIENT, Q4 ASSESSMENTS DONE, PROVIDED ATROPINE DROPS NEEDED AND SCOPOLAMINE PATCH FOR SECRETIONS, HE WAS ABLE TO OPEN HIS EYES A FEW TIMES THIS SHIFT AND TRACK STAFF AND FAMILY WHEN WE SPOKE TO HIM, REPOSITIONED FOR COMFORT, FAMILY AT BEDSIDE AND PROVIDED AMMENITIES T/O THE SHIFT.
--- NOTE | 2022-08-22 04:56 | NUR ---
SHIFT SUMMARY COMFORT CARE. MEDICATED 3x c ROXANOL FOR COMFORT & AIR HUNGER. MEDICATED 1x FOR SECRETIONS c ATROPINE DROPS, SCOPALAMINE PATCH BEHIND L EAR. RR TACHYPNIC, LABOURED, USING ACCESSORY MUSCLES, ON RA. PT OPENED EYES 2x THIS SHIFT WHEN NAME CALLED, ALSO GRABBED WIFES HAND UPON HER REQUEST. PO CARE PROVIDED, CHEWS ON TOOTHETE. RUIZ IN PLACE, @BEDISDE. WILL MONITOR.
--- NOTE | 2022-08-22 10:40 | NUR ---
Comfort Care Visit Pt resting in bed with his eyes closed. Pt non responsive with irregular breathing patterns. Mottling noted on BLLE. Spouse at bedside. Offered therapeutic conversation and answered questions. Primary RN Annia in room offering comfort medication. Pt appears to have transitioned. Palliative Care will remain available
--- NOTE | 2022-08-22 12:00 | NUR ---
PT WAS HAVING 10-SECOND APNEIC SPELLS WITH AIR HUNGER/DEEP BREATH INTAKE, AT THIS TIME PT APPEARS TO HAVE PASSED ON. I CONFIRMED THERE IS NO HEARTBEAT, PULSE, BREATH/BREATHING. CALLED PALLIATIVE CARE, SPIRITUAL CARE AND SOLAR PROJECT COORDINATION SPECIALIST. IS AT [place] WITH PT PASSING.
--- NOTE | 2022-08-22 12:23 | NUR ---
Received call from Primary RN Annia requesting verification of Pt's passing. Spouse at bedside. Apical pulse absent, respirations absent. Offered condolences and discussed homes. Spouse reports [facility]. Spouse expresses appreciation and reports no other concerns. Spouse appears to be grieving appropriately.
--- NOTE | 2022-08-22 13:20 | NUR ---
Time of prayer and grief support supplied to spouse, Krista who is grieving appropriately. I conducted a life review of the patient and assisted Krista as she was trying to work through the overwhelming amount of details and people to notify. Krista showed signs of being comforted.
--- NOTE | 2022-08-22 13:50 | NUR ---
[facility] FROM [facility] LEFT WITH PATIENT, FOLLOWED BY AND FRIEND. TOOK ALL PERSONAL POSSESSIONS.
== END 2022-08-22 13:45 | DRG 189 ==
LOC: ER 11:01 → SURS 13:08 → PCU 13:08 → SURS 08-20 18:17
PROVIDERS: Emergency Medicine; Internal Medicine; Nurse Practitioner Acute Care; ADMIT Internal Medicine
PROC: 5A09357 Assistance with Respiratory Ventilation, Less than 24 Consecutive Hours, Continuous Positive Airway Pressure (ICD-10-PCS; principal; 2022-08-16)
DX: J96.21 Acute and chronic respiratory failure with hypoxia (principal); J44.1 Chronic obstructive pulmonary disease with (acute) exacerbation; I50.32 Chronic diastolic (congestive) heart failure; N39.0 Urinary tract infection, site not specified; Z20.822 Contact with and (suspected) exposure to COVID-19; Z28.21 Immunization not carried out because of patient refusal; Z51.5 Encounter for palliative care; Z66 Do not resuscitate; I48.91 Unspecified atrial fibrillation; I95.9 Hypotension, unspecified; R45.1 Restlessness and agitation; J96.22 Acute and chronic respiratory failure with hypercapnia; R54 Age-related physical debility; B95.2 Enterococcus as the cause of diseases classified elsewhere; N40.1 Benign prostatic hyperplasia with lower urinary tract symptoms; E78.5 Hyperlipidemia, unspecified; D72.829 Elevated white blood cell count, unspecified; R33.8 Other retention of urine; Z99.81 Dependence on supplemental oxygen; Z86.73 Personal history of transient ischemic attack (TIA), and cerebral infarction without residual deficits; Z98.49 Cataract extraction status, unspecified eye; Z98.890 Other specified postprocedural states; Z87.891 Personal history of nicotine dependence
CPT/HCPCS: 0241U; 36415; 51702; 71045; 80048; 80053; 81001; 82803; 82947; 83605; 83880; 84484; 85025; 85027; 87040; 87070; 87075; 87077; 87086; 87186; 87205; 93005; 93010; 94640; 94660; 94664; 94762; 96365; 96375; 97110; 97162; 99285-25; A9270; C1751; J0295; J0456; J0696; J1650; J1940; J2060; J2270; J2920; J2930; J3480; J7030; J7050